=== PATIENT | male | born 1970 | race Caucasian/White ===

== ENCOUNTER 2021-10-01 10:47 | Emergency (ER) | payer OTHER, SELFPAY ==
[2021-10-01] VITALS (10 sets, daily range): BP systolic 149–168; BP diastolic 96–101; PULSE 67–102; RESP 14–28; O2SAT 96–100
--- NOTE | ~2021-10-01 | XR_ITS ---
EXAMINATION: XR chest 2V 10/01/2021 11:57 INDICATION: Chest pain. Electrical shock. PROCEDURE: 2 view chest COMPARISON: No prior studies for comparison. FINDINGS: The lungs are clear. The cardiomediastinal silhouette is within normal limits. There are no pleural effusions. There is no pneumothorax suspected. IMPRESSION: 1: NO ACUTE CARDIOPULMONARY DISEASE. Reviewed, dictated and finalized at location A. ICATION CHEMIST
--- NOTE | 2021-10-01 10:59 | ECG_ITS ---
Measurements Intervals [place] Rate: 87 P: 46 FL: 139 QRS: -19 QRSD: 125 T: -12 QT: 351 QTc: 424 Interpretive Statements SINUS RHYTHM WITH SINUS ARRHYTHMIA RIGHT BUNDLE BRANCH BLOCK BASELINE ARTIFACT- II, III, AVR, AVF, V1-V6 ABNORMAL ECG Electronically Signed On 10-01-2021 11:10:44 STEAM SERVICE INSPECTOR by Teto Horne D.O.
--- NOTE | 2021-10-01 11:26 | ED.CHESTPAIN ---
HPI - Chest Pain General Chief Complaint: Chest Pain Stated Complaint: electrocution Time Seen by Provider: 10/01/21 11:24 Source: patient and family Limitations: no limitations History of Present Illness HPI narrative: Patient was remodeling his home, accidentally touch uncovered wire for 1 to 2 seconds by right hand, 10 AM, came with a chief complaint of pain of the right hand and right upper extremity like dull aching, patient had lightheadedness and dizziness lasted for few seconds , then resolved .currently complaining of pain of the right hand ,feels like swollen and tight. Patient denies any loss of consciousness, chest pain, shortness of breath, headache, fall or burn. the voltage is 120 Related Data Allergies Allergy/AdvReac Type Severity Reaction Status Date / Time Penicillins Allergy Anaphylaxis Verified 10/01/21 11:06 Review of Systems Review of Systems: CONSTITUTIONAL: Denies fever, chills, or sweats. EYES: Denies visual changes, redness, or discharge. ENT: Denies rhinorrhea, congestion, sore throat, or otalgia. CARDIOVASCULAR: Denies chest pain, palpitations, or edema. RESPIRATORY: Denies cough or dyspnea. GASTROINTESTINAL: Denies abdominal pain, nausea, vomiting, or diarrhea. GENITOURINARY: Denies dysuria or hematuria. SKIN: Denies rash or itching. MUSCULOSKELETAL: Denies back pain, joint pain, or myalgia. NEUROLOGIC: Denies headache, numbness, or weakness. PSYCHIATRIC: Denies anxiety or depression. Exam Narrative: General appearance: Well-developed, well-nourished Skin: Normal color Head: Normocephalic, nontraumatic Eyes: Clear conjunctiva ENT: Oropharynx normal, ears normal, nose normal Neck: Supple, nontender Chest and respiratory: Airway patent, no respiratory distress, no accessory muscle use Heart: Regular rate/rhythm Abdomen: Soft, nontender, no organomegaly, quiet bowel sounds Vascular: Normal peripheral pulses, normal capillary refill. Musculoskeletal: Slight diffuse tenderness of the right hand, forearm and arm, no bobo, no bruises, no erythema, no tightness, the whole upper extremity is soft including the right hand patient is able to flex, extend the shoulder, elbow, wrist. Slight difficulty to make a fist Neurologic: Alert and oriented ?3, PAPER SEALER is normal as tested, no gross motor deficit Course Consultations Consultation #1: Dr. Marion. Agreed with discharge patient home, encourage fluid intake. Date: 10/01/21 Time: 13:26 Vital Signs Vital signs: Vital Signs Pulse Rate 93 10/01/21 11:01 Respiratory Rate 16 10/01/21 11:01 Blood Pressure 168/101 H 10/01/21 11:01 Pulse Oximetry 98 10/01/21 11:01 Pulse Rate 93 10/01/21 11:01 Respiratory Rate 16 10/01/21 11:01 Blood Pressure 168/101 H 10/01/21 11:01 Pulse Oximetry 98 10/01/21 11:01 MDM - Chest Pain MDM Narrative Medical decision making narrative: Electric injury, muscle damage is my concern, myoglobinemia, myoglobinuria, elevated CPK is my concern. Labs ordered, IV fluid. Physical examination showed no compartment syndrome at this time. Differential Diagnosis Differential diagnosis: Likely other (Muscle damage) Imaging Data Radiologist's impression: Impressions Chest X-Ray 10/01/21 11:58 IMPRESSION: 1: NO ACUTE CARDIOPULMONARY DISEASE. ECG Data EKG #1: Attestation: I personally reviewed and interpreted this ECG as follows: ECG completion date: 10/01/21 ECG completion time: 13:26 Interpretation: Normal sinus rhythm at 87 bpm, right bundle branch block. Abnormal EKG Critical Care Time Critical Care Time Critical Care Time: Yes Total Critical Care Time: 50 Discharge Plan Disc
[2021-10-01 11:35] LABS: Basophils Absolute Auto 0.1 K/mm3 (0.0-0.1); Basophils Percent Auto 0.8 % (0.2-1.2); Eosinophils Absolute Auto 0.2 K/mm3 (0-0.3); Eosinophils Percent Auto 2.2 % (0-4.4); Hematocrit 45.6 % (42.0-52.0); Hemoglobin 15.9 g/dL (14.0-18.0); Immature Granulocyte Absolute 0.03 K/mm3 (0.00-0.031); Immature Granulocyte Percent A 0.4 % (0-0.5); Lymphocytes Absolute Auto 1.86 K/mm3 (0.9-3.2); Lymphocytes Percent Auto 25.7 % (18.3-44.2); Mean Corpuscular HGB Conc 34.9 g/dl (32-36); Mean Corpuscular Hemoglobin 31.4 pg (26-34); Mean Corpuscular Volume 90.1 fl (80-100); Mean Platelet Volume 10.1 fl (7.4-10.4); Monocytes Absolute Auto 0.5 K/mm3 (0.1-0.6); Monocytes Percent Auto 6.6 % (2.6-8.5); Neutrophils Absolute Auto 4.7 K/mm3 (1.3-6.7); Neutrophils Percent Auto 64.3 % (45.5-73.1); Platelet Count Result 227 k/mm3 (150-375); Red Blood Count 5.06 M/mm3 (4.6-6.20); Red Cell Distribution Width 13.2 % (11.5-14.5); White Blood Count 7.2 K/mm3 (4.5-10.0)
[2021-10-01 11:57] LABS: INR 0.9; Prothrombin Time 12.2 Seconds (11.1-14.7)
[2021-10-01 11:58] LABS: Partial Thromboplastin Time 27.6 SECONDS (22.3-36.8)
[2021-10-01] MEDS: SODIUM CHLORIDE 0.9% IV 1,000 ML 999 ML IV CONT (12:17)
[2021-10-01 12:36] LABS: Alanine Aminotransferase 42 U/L (4-50); Albumin Level 4.6 g/dL (3.5-5.1); Alkaline Phosphatase 84 U/L (38-126); Anion Gap 7 mmol/L (8-16); Aspartate Amino Transferase 40 U/L (17-59); Bilirubin,Total 0.4 mg/dL (0.2-1.3); Blood Urea Nitrogen 13 mg/dL (9-20); Calcium 9.3 mg/dL (8.4-10.2); Carbon Dioxide 27 mmol/L (22-30); Chloride 102 mmol/L (98-107); Creatine Kinase 232 U/L (55-170); Estimated CRCL calculation 64 ml/min; Estimated Glomerular Filt Rate > 60; Glucose 96 mg/dL (65-110); Lipase 42 U/L (23-300); Potassium 4.1 mmol/L (3.4-5.0); Sodium 136 mmol/L (137-145)
[2021-10-01 12:47] LABS: Troponin I < 0.012 ng/mL (0.000-0.034)
[2021-10-04 13:54] LABS: Myoglobin, Urine <27 mcg/L (<28)
== END 2021-10-01 14:19 | disposition home or self-care (01) ==
PROVIDERS: Emergency Provider Emergency Medicine
DX: R20.2 Paresthesia of skin (principal); W86.0XXA Exposure to domestic wiring and appliances, initial encounter; I45.10 Unspecified right bundle-branch block
CPT/HCPCS: 36415; 71046; 80053; 82550; 83690; 83874; 84484; 85025; 85610; 85730; 93005; 96360; 96361; 99284; J7030

== ENCOUNTER 2022-05-06 11:35 | Inpatient (IN) | payer OTHER, SELFPAY ==
[2022-05-06] VITALS (25 sets, daily range): BP systolic 104–171; BP diastolic 70–109; PULSE 59–125; RESP 13–24; TEMP 36.3–36.7; O2SAT 94–100; BMI 30.1
--- NOTE | ~2022-05-06 | CT_ITS ---
EXAMINATION: CT cervical spine wo con DATE: 05/06/2022 12:53 INDICATION: Left upper extremity weakness and numbness. Status post STEMI. TECHNIQUE: Computed tomography (CT) of the cervical spine was performed without intravenous contrast. The dose-length product was 459 mGy-cm. Automated exposure control and iterative reconstruction tech nique were employed. COMPARISON: None FINDINGS: There is degenerative disc disease with endplate degenerative change at C5-6. There is an o ld spinous process fracture with nonunion at T1. Odontoid process within normal limits. There is mild levoscoliosis centered at the cervicothoracic junction. Odontoid process within normal limits. There is multilevel uncinate degenerative change. No acute fracture, subluxation or spondylolisthesis. The re is mild multilevel uncinate and facet degenerative change. IMPRESSION: 1. No acute abnormality of the cervical spine. 2: Mild cervical spondylosis. Reviewed, dictated and finalized at location A.
--- NOTE | ~2022-05-06 | CT_ITS ---
EXAMINATION: CT brain wo con DATE: 05/06/2022 12:52 INDICATION: Left arm weakness and numbness TECHNIQUE: Computed tomography (CT) of the head was performed without intravenous contrast. The dose- length product was 605.33 mGy-cm. Automated exposure control and iterative reconstruction technique w ere employed. COMPARISON: None FINDINGS: The vascular structures are hyperdense, possibly related to recent contrast administration or dehydration. Normal brain parenchymal volume for age. No acute intracranial hemorrhage, infarction , mass or mass effect. Basilar cisterns are patent. No ventriculomegaly or midline shift. There is mu cosal thickening of the right maxillary and ethmoid sinuses. Mastoids are pneumatized. IMPRESSION: 1. No acute intracranial abnormality. Reviewed, dictated and finalized at location A.
[2022-05-06 11:19] LABS: Hematocrit 45.7 % (42.0-52.0); Hemoglobin 16.5 g/dL (14.0-18.0); Mean Corpuscular HGB Conc 36.1 g/dl (32-36); Mean Corpuscular Hemoglobin 31.1 pg (26-34); Mean Corpuscular Volume 86.1 fl (80-100); Mean Platelet Volume 10.9 fl (7.4-10.4); Platelet Count Result 376 k/mm3 (150-375); Red Blood Count 5.31 M/mm3 (4.6-6.20); Red Cell Distribution Width 13.5 % (11.5-14.5); White Blood Count 12.7 K/mm3 (4.5-10.0)
[2022-05-06 11:32] LABS: Alanine Aminotransferase 24 U/L (6-50); Albumin Level 4.5 g/dL (3.5-5.1); Alkaline Phosphatase 108 U/L (38-126); Anion Gap 12 mmol/L (8-16); Aspartate Amino Transferase 30 U/L (17-59); Bilirubin,Total 0.6 mg/dL (0.2-1.3); Blood Urea Nitrogen 14 mg/dL (9-20); Carbon Dioxide 21 mmol/L (22-30); Chloride 106 mmol/L (98-107); Estimated Glomerular Filt Rate > 60; Glucose 140 mg/dL (65-110); Potassium 3.5 mmol/L (3.4-5.0); Sodium 139 mmol/L (137-145)
--- NOTE | 2022-05-06 11:34 | ECG_ITS ---
Measurements Intervals [place] Rate: 92 P: 50 [place]: 169 QRS: -7 QRSD: 121 T: -19 QT: 349 QTc: 434 Interpretive Statements SINUS RHYTHM RIGHT BUNDLE BRANCH BLOCK INFERIOR ST ELEVATION MYOCARDIAL INFARCT- ACUTE ABNORMAL ECG Electronically Signed On 05-06-2022 13:04:23 CDT by Teto Horne D.O.
--- NOTE | 2022-05-06 11:37 | WPDCARDPROC ---
Cardiac Cath Procedure Note Date of procedure:: 05/06/22 Performing physician:: Gianni Johnson MD Indication:: inferior wall ST-elevation [place] Brief clinical history:: this is a 52-year-old man presenting in by ambulance with severe acute chest pain that occurred earlier this morning while he was doing work in the yd. ECG in the field demonstrates obvious acute inferior current of injury. He is being brought to the quality lab assoc for emergency angiography in this setting. No previous history of coronary artery disease. The patient is a cigarette smoker Procedure Procedure performed:: emergency coronary angiography emergency PCI(HAMMAD) to the right coronary artery left ventriculogram Sedation/Medication given:: no sedation Access site:: right femoral artery Estimated blood loss:: 30 cc Procedure note:: patient was brought emergently to the cardiac catheterization lab straight from the ambulance on the ambulance gurney. He was placed on the quality lab [facility] table where the right left femoral triangles were prepped and draped in the usual sterile fashion. Anesthesia was provided with 1% lidocaine infiltrated locally. Using the modified Seldinger technique Ari 6 [place] sheath was placed into the right femoral artery. After this I used a 5 [place] FL4 catheter to engage and inject the left coronary artery in multiple projections. After this a 6 [place] JR4 guiding catheter with side holes was placed into the right coronary artery and angiography was carried out. After this emergency PCI of the right coronary artery was recommended and carried out as detailed below. The patient received aspirin in the ambulance and 180 mg of Brilinta as he entered the quality lab assoc. Procedural anticoagulation was provided with a bolus and infusion of Angiomax. Following right coronary intervention the guiding catheter was removed and a 5 [place] angled pigtail catheter was used to measure left-sided hemodynamics and to inject LV g in the TORRE projection. After this the case was terminated the patient was taken to the ICU for post [place] PCI recovery. During the case at the time of revascularization the patient developed more rapid irregular rhythm consistent with atrial fibrillation. He was in sinus rhythm with second-degree AV block Mobitz type 1 prior to the intervention. He was given a bolus and infusion of amiodarone for this. Following the procedure the sheath was sutured into position he was taken to the ICU for post [place] PCI recovery. Findings:: Hemodynamics: The central aortic pressure was 158/98 left ventricle 158/10 end-diastolic pressure 24 there is no gradient on pullback across the aortic valve. Left ventricle: The LV is normal in size. The inferior wall is akinetic the remainder of the LV contracts normally. The global ejection fraction is 50-55%. The left main coronary artery is short and widely patent the left anterior descending is a medium caliber vessel extending down to the apex. The LAD and its branches are angiographically free of disease. The circumflex is a medium caliber vessel giving rise to the marginal branches. The circumflex system is angiographically also free of disease. The right coronary artery is 100% occluded in the 1st portion in the appearance of which is typical but abrupt acute thrombotic occlusion. There is no antegrade filling in the RCA intervention: The right coronary artery was wired using a 0.014 BMW coronary guidewire which advanced easily into the distal RPL system. The target lesion was then pre-dilated using a 3 x 20 mm Mac angioplasty balloon. This restored KASSIE 3 flow in the vessel and showed the area of disease to be moderately long. The entire area was then stented using a 3.5 x 30 mm Leads Directiro sirolimus eluting stent with an excellent anatomical result following to stent deployment at 12 atmospheres there was no residual stenosis disruption dissection or distal embolization and there was KASSIE
[2022-05-06 11:43] LABS: Troponin I < 0.012 ng/mL (0.000-0.034)
[2022-05-06] MEDS: AMIODARONE 360 MG/D5W 200 ML 360 MG/200 ML BAG 33.33 MG IV CONT (11:45)
--- NOTE | 2022-05-06 11:45 | PC.NURSE ---
This patient, Naresh Hernandez, was admitted to Intensive Care Unit-6. Patient/family oriented to hospital policies and general routines including ID bracelet, bed and alarms, visiting hours, pain management, procedures, bathroom and other care routines, personal items, smoking policy, room service/diet, and visiting hours. Information on how to activate the Rapid Response Team has been discussed. Patient/Family are encouraged to report perceived risks to care and to ask questions if they do not understand what they are told or what they should do.
[2022-05-06] MEDS: MORPHINE SULFATE (*CRX) 2 MG/ML INJ IV PUSH ×4 (12:26→23:40)
[2022-05-06] MEDS: SODIUM CHLORIDE 0.9% IV 1,000 ML 125 ML IV CONT (12:26)
--- NOTE | 2022-05-06 12:31 | WPDCNINT ---
Assessment and Plan Assessment and plan (1) STEMI (ST elevation myocardial infarction): Code(s): I21.3 - ST elevation (STEMI) myocardial infarction of unspecified site Status: Acute Assessment and Plan: Patient complained of chest pain and on day of admission while doing his yard work, chest pain was accompanied by nausea, shortness of breath and left upper extremity pain and numbness. -EKG on the field showed acute inferior ST-elevation myocardial injury, status post PTCA/PCI with HAMMAD x1 to 100% occluded 1st portion of the RCA, EF 50-55% -cardiology following the patient -continue Brilinta, aspirin, rosuvastatin, losartan and metoprolol (2) History of essential hypertension: Code(s): Z86.79 - Personal history of other diseases of the circulatory system Status: Acute Assessment and Plan: Patient states that he had lost his insurance and has not been following with his primary care doctor so currently is not on any antihypertensives -continue lisinopril and metoprolol (3) History of irregular heartbeat: Code(s): Z86.79 - Personal history of other diseases of the circulatory system Status: Acute Assessment and Plan: Patient states he has a history of irregular heart rhythm, -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 started amiodarone infusion -cannulated to sinus rhythm after he arrived in the ICU -patient is on metoprolol (4) History of hyperlipidemia: Code(s): Z86.39 - Personal history of other endocrine, nutritional and metabolic disease Status: Acute Assessment and Plan: Continue rosuvastatin (5) Pain and numbness of left upper extremity: Code(s): M79.602 - Pain in left arm; R20.0 - Anesthesia of skin Status: Acute Assessment and Plan: Could be related to residual referred pain from the STEMI -05/06 CT scan of the brain and cervical spine were negative -morphine for pain, will give NTG SL x1 with improvement in the pain (6) Tobacco use: Code(s): Z72.0 - Tobacco use Status: Acute Assessment and Plan: Patient counseled on tobacco cessation, approximately 3 minutes were spent on counseling, discussed the negative effects of tobacco use. -patient stated he is going to quit smoking after the NE that he had today Plan CT scan of the brain and cervical spine Additional Plan Discussed with cardiology, will let amiodarone drip finish and will discontinue. Discussed with patient and his family at bedside updated them with the CT scan results and my discussion with Cardiology. Code status: Full code Critical care time spent: 44 minutes This dictation may have been done utilizing a voice recognition system. Attempts have been made to correct errors. However, there may be uncorrected grammatical, spelling, and recognition errors present. Due to a high probability of clinically significant, life threatening deterioration, the patient required my highest level of preparedness to intervene emergently and I personally spent this critical care time directly and personally managing the patient. This critical care time included obtaining a history; examining the patient; pulse oximetry; ordering and review of studies; arranging urgent treatment with development of a management plan; evaluation of patient's response to treatment; frequent reassessment; and discussions with other providers. It was exclusive of separately billable procedures and treating other patients and teaching time. Please see Assessment and Plan section and the rest of the note for further information on patient assessment and treatment Appliance Tester Consult Note Consult date: 05/06/22 Reason for consult: Acute Inferior ST-elevation [place] status post PTCA/PCI with HAMMAD x1 to 100% occluded 1st portion of the RCA, EF 50-55% HPI: Naresh Hernandez is a 52 year old male with history of tobacco use, history of irregular heart rate, hyperlipidemia and essential hypertension, patient st
[2022-05-06 12:35] LABS: Cholesterol 244 mg/dL (0-200); HDL Direct 30 mg/dL; Triglycerides 139 mg/dL (<150)
[2022-05-06] MEDS: NITROGLYCERIN SL 0.4 MG TABLET SUBLINGUAL ×4 (12:36→19:48)
[2022-05-06 12:46] LABS: LDL Cholesterol Direct 162 mg/dL
--- NOTE | 2022-05-06 13:19 | PM.IMHP ---
H&P: HPI History of Present Illness Date/Time: 05/06/22 13:19 Chief Complaint: chest pain Narrative: this is a 52-year-old gentleman who is being seen very rapidly as he is being rolled down the delong to the cardiac catheterization lab in the setting of acute inferior ST-elevation [place]. The patient has no previous history of cardiac problems. He states he does not seek medical attention with the physician for any reason why regularly. He takes no medications prior to this admission. He was in his outside of his home doing yd work this morning and began to experience retrosternal pressure-like chest pain. 911 was called to his home and ECG in the field demonstrated obvious acute inferior current of injury. He was brought to the cardiac catheterization lab where STEMI was activated in the field. The patient was met in the emergency room at off the ambulance and is being rolled to the elevator in to the cardiac catheterization lab as we speak. He denies any other current symptoms. Review of Systems Review of Systems: ROS unobtainable: Yes unobtainable due to medical condition PMFSH Social History Social History (System 11/21/21 @ 12:32 by Emperatriz Harper) Smoking packs per day: 0.5 Smoking cigarettes per day: 10.0 Years smoked: 44 Smoking pack-years: 22.00 Smoking status: Current every day smoker Tobacco type: cigarettes Alcohol intake: former Substance use: never Spiritual care concerns: No Meds Home Medications and Allergies Home Medications Medication Instructions Recorded Confirmed Type No Home Medications 05/06/22 05/06/22 History Allergies Allergy/AdvReac Type Severity Reaction Status Date / Time Penicillins Allergy Anaphylaxis Verified 11/21/21 12:32 Exam Const: General: uncomfortable Other: Well-developed well-nourished white male appears to be in moderate distress with chest pain HENMT: Mouth: Yes moist mucous membranes Eyes: Sclera: sclerae normal Neck: Neck: supple and no JVD Other: carotid pulses are intact bilaterally and there are no audible bruits Resp: Effort & Inspection: normal respiratory effort Auscultation: clear to auscultation bilaterally Cardio: Rate: bradycardic Rhythm: regular rhythm Other: patient sinus bradycardia. No murmur no gallop GI: GI Palp: Yes Soft to palpation Auscultation: normal bowel sounds Skin: General skin exam: normal color Neuro: Other: neurologically intact normal cognition Extrem: General: normal to inspection H&P: Results Labs Labs: Short CBC 05/06/22 Range/Units 10:36 WBC 12.7 H (4.5-10.0) K/mm3 Hgb 16.5 (14.0-18.0) g/dL Hct 45.7 (42.0-52.0) % Plt Count 376 H D (150-375) k/mm3 BMP 05/06/22 10:36 Sodium 139 Potassium 3.5 Chloride 106 Carbon Dioxide 21 L BUN 14 Creatinine 1.00 Glucose 140 H Calcium 9.0 Cardiac Enzymes 05/06/22 Range/Units 10:36 Troponin I < 0.012 (0.000-0.034) ng/mL Liver Function 05/06/22 Range/Units 10:36 Total Bilirubin 0.6 (0.2-1.3) mg/dL AST 30 (17-59) U/L ALT 24 (6-50) U/L Alkaline Phosphatase 108 (38-126) U/L Albumin 4.5 (3.5-5.1) g/dL Assessment and Plan Assessment and plan (1) STEMI (ST elevation myocardial infarction): Code(s): I21.3 - ST elevation (STEMI) myocardial infarction of unspecified site Status: Acute Plan this is a 52-year-old man with no previous overt cardiac history presenting with acute chest pain and acute ST-elevation inferior infarction. He is being brought for emergency angiography at this time in hopes of providing direct mechanical revascularization. Gianni Johnson MD [facility]
[2022-05-06] MEDS: METOPROLOL TARTRATE 25 MG TABLET PO ×2 (13:29→17:52)
[2022-05-06 14:39] LABS: INR 1.3; Prothrombin Time 15.2 Seconds (11.1-14.7)
--- NOTE | 2022-05-06 19:33 | ECG_ITS ---
Measurements Intervals [place] Rate: 59 P: 27 RI: 143 QRS: -17 QRSD: 114 T: -18 QT: 414 QTc: 412 Interpretive Statements SINUS BRADYCARDIA RIGHT BUNDLE BRANCH BLOCK INFERIOR INFARCT, PROBABLY RECENT ABNORMAL ECG Electronically Signed On 05-07-2022 7:09:49 CDT by Teto Horne D.O.
--- NOTE | 2022-05-06 19:35 | PC.NURSE ---
Entered patient's room to reapply cardiac cath rn. Patient stated he was having 8/10 chest tightness. Patient stated it was the same pain as when he came in. EKG obtained and nitro SL given x3 per protocol. Dr. Jernigan notified and new orders received. EKGs sent to Dr. Jernigan per her request.
--- NOTE | 2022-05-06 20:40 | ECG_ITS ---
Measurements Intervals [place] Rate: 62 P: 37 HI: 133 QRS: -17 QRSD: 118 T: -5 QT: 419 QTc: 426 Interpretive Statements SINUS RHYTHM ATRIAL PREMATURE COMPLEX INCOMPLETE RIGHT BUNDLE BRANCH BLOCK INFERIOR INFARCT, PROBABLY RECENT ABNORMAL ECG Electronically Signed On 05-07-2022 7:15:20 CDT by Teto Horne D.O.
[2022-05-06] MEDS: TICAGRELOR 90 MG TABLET PO (22:30)
[2022-05-07] VITALS (14 sets, daily range): BP systolic 101–119; BP diastolic 70–83; PULSE 51–83; RESP 13–23; TEMP 36.4–37.2; O2SAT 94–98
--- NOTE | 2022-05-07 | ECHO_ITS ---
Patient Info Name: Naresh Hernandez Age: 52 years : 1970 Gender: Male Ht: 63 in Wt: 163 lbs BSA: 1.84 m2 HR: 60 bpm BP: 110 / 77 mmHg Heart Rhythm: Sinus Rhythm Exam Date: 05/07/2022 2:02 PM Exam Location: [facility] Patient Status: Inpatient Admit Date: 05/06/2022 Staff Ordering Physician: Nimisha Almonte Food Aide: Sal Santiago RDCS, RT Attending Provider: Gianni Johnson MD Referring Physician: Suzy MOULTON; Exam Type: CA echo doppler color flow Study Info Indications I21.4 - Non-ST elevation (NSTEMI) myocardial infarction Complete two-dimensional, color flow and Doppler transthoracic echocardiogram is performed with contrast to opacify the left ventricle and to improve the deliniation of the left ventricle endocardial borders. Strain analysis performed. Summary 1. Left ventricular chamber dimension is normal. 2. Left ventricular systolic function is normal, estimated at 60-65%. 3. There is mildly increased left ventricular wall thickness. 4. The left ventricular diastolic function is normal. 5. Global longitudinal strain is borderline at -17 %. 6. Left atrial chamber dimension is mildly enlarged. 7. There is mild to moderate mitral valve regurgitation. Left Ventricle Left ventricular chamber dimension is normal. Left ventricular systolic function is normal, estimated at 60-65%. There is mildly increased left ventricular wall thickness. The left ventricular diastolic function is normal. Global longitudinal strain is borderline at -17 %. Right Ventricle Right ventricular chamber dimension is normal. Right ventricular systolic function is normal. Left Atria Left atrial chamber dimension is mildly enlarged. Right Atria Right atrial chamber dimension is normal. Atrial Septum Intact interatrial septum visualized by color flow imaging. Aortic Valve The aortic valve is probable trileaflet. There is mild aortic valve sclerosis. There is no aortic valve stenosis. There is trace aortic valve regurgitation. Pulmonic Valve The pulmonic valve is normal. There is no pulmonic valve stenosis. There is trace pulmonic regurgitation. Mitral Valve The mitral valve has normal leaflets. There is no mitral valve stenosis. There is mild to moderate mitral valve regurgitation. Tricuspid Valve The tricuspid valve leaflets are normal. There is no significant tricuspid valve stenosis. There is trace tricuspid valve regurgitation. Pericardium/Pleural The pericardium appears normal. There is no pericardial effusion. Inferior Vena Cava Normal inferior vena cava with <50% collapse upon inspiration consistent with elevated right atrial pressure, 10 mmHg. Aorta The aortic root size at the sinus of Valsalva is normal. Left Ventricular Outflow Tract Name Value Normal LVOT 2D LVOT Diameter 2.0 cm LVOT Doppler LVOT Peak Gradient 3 mmHg LVOT Mean Gradient 1 mmHg LVOT VTI 17 cm LVOT VTI/AV VTI Ratio 0.8 LVOT Stroke Volume
[2022-05-07 04:13] LABS: Basophils Absolute Auto 0.1 K/mm3 (0.0-0.1); Basophils Percent Auto 0.6 % (0.2-1.2); Eosinophils Absolute Auto 0.2 K/mm3 (0-0.3); Eosinophils Percent Auto 1.8 % (0-4.4); Hematocrit 38.7 % (42.0-52.0); Hemoglobin 13.5 g/dL (14.0-18.0); Immature Granulocyte Absolute 0.02 K/mm3 (0.00-0.031); Immature Granulocyte Percent A 0.2 % (0-0.5); Lymphocytes Absolute Auto 2.06 K/mm3 (0.9-3.2); Lymphocytes Percent Auto 22.8 % (18.3-44.2); Mean Corpuscular HGB Conc 34.9 g/dl (32-36); Mean Corpuscular Hemoglobin 31.5 pg (26-34); Mean Corpuscular Volume 90.2 fl (80-100); Mean Platelet Volume 9.9 fl (7.4-10.4); Monocytes Absolute Auto 0.6 K/mm3 (0.1-0.6); Neutrophils Absolute Auto 6.1 K/mm3 (1.3-6.7); Neutrophils Percent Auto 67.6 % (45.5-73.1); Platelet Count Result 230 k/mm3 (150-375); Red Blood Count 4.29 M/mm3 (4.6-6.20); Red Cell Distribution Width 13.8 % (11.5-14.5)
[2022-05-07 04:22] LABS: Anion Gap 5 mmol/L (8-16); Blood Urea Nitrogen 12 mg/dL (9-20); Calcium 8.2 mg/dL (8.4-10.2); Carbon Dioxide 27 mmol/L (22-30); Chloride 107 mmol/L (98-107); Estimated CRCL calculation 72 ml/min; Estimated Glomerular Filt Rate > 60; Glucose 113 mg/dL (65-110); Magnesium 1.9 mg/dL (1.6-2.3); Phosphorus 3.2 mg/dL (2.5-4.5); Sodium 139 mmol/L (137-145)
--- NOTE | 2022-05-07 05:11 | ECG_ITS ---
Measurements Intervals [place] Rate: 60 P: 23 [place]: 152 QRS: -62 QRSD: 122 T: -32 QT: 423 QTc: 424 Interpretive Statements SINUS RHYTHM LEFT AXIS DEVIATION RIGHT BUNDLE BRANCH BLOCK INFERIOR INFARCT, PROBABLY RECENT BASELINE ARTIFACT- I, II ABNORMAL ECG Electronically Signed On 05-07-2022 11:28:10 CDT by Teto Horne D.O.
[2022-05-07] MEDS: TICAGRELOR 90 MG TABLET PO ×2 (08:34→20:09)
[2022-05-07] MEDS: ASPIRIN 81 MG CHEWABLE TABLET PO (08:34)
[2022-05-07] MEDS: ROSUVASTATIN 10 MG TABLET 20 MG PO (08:34)
[2022-05-07] MEDS: METOPROLOL TARTRATE 25 MG TABLET PO ×2 (08:34→20:09)
[2022-05-07] MEDS: LOSARTAN POTASSIUM 25 MG TABLET PO (08:35)
--- NOTE | 2022-05-07 08:48 | WPDINTPN ---
Progress Note: A&P Assessment and Plan (1) STEMI (ST elevation myocardial infarction): Code(s): I21.3 - ST elevation (STEMI) myocardial infarction of unspecified site Status: Acute Assessment and Plan: Patient complained of chest pain and on day of admission while doing his yard work, chest pain was accompanied by nausea, shortness of breath and left upper extremity pain and numbness. -EKG on the field showed acute inferior ST-elevation myocardial injury, status post PTCA/PCI with HAMMAD x1 to 100% occluded 1st portion of the RCA, EF 50-55% -cardiology following the patient -continue Brilinta, aspirin, rosuvastatin, losartan and metoprolol -patient had a episodes of nonsustained V-tach, PVCs likely due to [id number] (2) History of essential hypertension: Code(s): Z86.79 - Personal history of other diseases of the circulatory system Status: Acute Assessment and Plan: Patient states that he had lost his insurance and has not been following with his primary care doctor so currently is not on any antihypertensives -continue lisinopril and metoprolol (3) History of irregular heartbeat: Code(s): Z86.79 - Personal history of other diseases of the circulatory system Status: Acute Assessment and Plan: Patient states he has a history of irregular heart rhythm, -in the labeling specialist he did go into AFib RVR started amiodarone infusion, patient converted to sinus rhythm after he came to the ICU from the labeling specialist -continue metoprolol -currently in sinus rhythm, rate controlled (4) History of hyperlipidemia: Code(s): Z86.39 - Personal history of other endocrine, nutritional and metabolic disease Status: Acute Assessment and Plan: Continue rosuvastatin (5) Pain and numbness of left upper extremity: Code(s): M79.602 - Pain in left arm; R20.0 - Anesthesia of skin Status: Acute Assessment and Plan: Left upper extremity pain and numbness, Could be related to residual referred pain from the STEMI -05/06 CT scan of the brain and cervical spine were negative -morphine for pain, will give NTG SL x1 with improvement in the pain -left upper extremity pain and numbness has resolved (6) Tobacco use: Code(s): Z72.0 - Tobacco use Status: Acute Assessment and Plan: Patient counseled on tobacco cessation, approximately 3 minutes were spent on counseling, discussed the negative effects of tobacco use. -patient stated he is going to quit smoking after the MA Additional Plan Discussed with cardiology Discussed with patient updated him with his condition and plan of care Code status: Full code Critical care time spent: 32 minutes This dictation may have been done utilizing a voice recognition system. Attempts have been made to correct errors. However, there may be uncorrected grammatical, spelling, and recognition errors present. Due to a high probability of clinically significant, life threatening deterioration, the patient required my highest level of preparedness to intervene emergently and I personally spent this critical care time directly and personally managing the patient. This critical care time included obtaining a history; examining the patient; pulse oximetry; ordering and review of studies; arranging urgent treatment with development of a management plan; evaluation of patient's response to treatment; frequent reassessment; and discussions with other providers. It was exclusive of separately billable procedures and treating other patients and teaching time. Please see Assessment and Plan section and the rest of the note for further information on patient assessment and treatment Subjective Date/time seen: 05/07/22 08:48 Interval history: Reason for consult: Acute Inferior ST-elevation MA status post PTCA/PCI with HAMMAD x1 to 100% occluded 1st portion of the RCA, EF 50-55% 05/07/2022: Patient seen and examined the ICU, complains of some chest tig
[2022-05-07] MEDS: NICOTINE (*PBKC) 14 MG PATCH 1 PATCH TRANSDERM (10:43)
--- NOTE | 2022-05-07 13:16 | PM.PNCARD ---
Progress Note: A&P Assessment and Plan (1) STEMI (ST elevation myocardial infarction): Code(s): I21.3 - ST elevation (STEMI) myocardial infarction of unspecified site Status: Acute Assessment and Plan: Acute Inferior ST-elevation [place] status post PTCA/PCI with HAMMAD x1 to 100% occluded 1st portion of the RCA. VSS overnight, had a few runs of NSVT, PVC's. Also had some recurrent chest discomfort that resolved with morphine, no EKG changes. Continue DAPT with ASA and brilinta without interruption for one year Continue metoprolol, losartan Check echo Aggressive risk factor modification for CAD Outpatient cardiac rehab OK to transfer to IMU Continue telemetry Anticipate discharge within the next 24 - 48 hours if he remains stable Plan Subjective Date/time seen: 05/07/22 13:16 Interval history: Reason for consult: Acute Inferior ST-elevation OR status post PTCA/PCI with HAMMAD x1 to 100% occluded 1st portion of the RCA, EF 50-55% Had a couple episodes of recurrent chest pain last evening that resolved with administration or morphine. No recurrence of chest pain since early this morning. Has had a few runs of NSVT, longest of which was 9 beats. Asymptomatic. Currently in sinus bradycardia on telemetry. No shortness of breath, palpitations. Plan to downgrade to IMU level of care. Review of Systems Review of Systems: All systems reviewed & are unremarkable except as noted in HPI and below Exam Const: General: uncomfortable Other: Well-developed well-nourished white male in no distress HENMT: Mouth: Yes moist mucous membranes Eyes: Sclera: sclerae normal Neck: Neck: supple and no JVD Other: carotid pulses are intact bilaterally and there are no audible bruits Resp: Effort & Inspection: normal respiratory effort Auscultation: clear to auscultation bilaterally Cardio: Rate: bradycardic Rhythm: regular rhythm Other: patient sinus bradycardia. No murmur no gallop GI: Auscultation: normal bowel sounds Skin: General skin exam: normal color Other: Right groin arterial access site free from bleeding, hematoma, tenderness. No bruit. Pedal pulses intact Neuro: Other: neurologically intact normal cognition Extrem: General: normal to inspection Objective Data Vital Signs Vital Signs: Vital Signs - 24 hr 05/06/22 13:29 05/06/22 13:30 05/06/22 14:00 Temperature Pulse Rate 89 91 101 H Respiratory Rate 21 H Blood Pressure 132/86 Pulse Oximetry 97 Oxygen Delivery 05/06/22 14:00 05/06/22 14:30 05/06/22 15:30 Temperature Pulse Rate 84 91 75 Respiratory Rate 23 H 21 H 22 H Blood Pressure 137/109 H 132/86 128/88 Pulse Oximetry 96 97 95 Oxygen Delivery 05/06/22 15:52 05/06/22 16:00 05/06/22 16:00 Temperature 36.3 C L Pulse Rate 70 77 Respiratory Rate 18 Blood Pressure 128/88 Pulse Oximetry 98 96 Oxygen Delivery Room Air 05/06/22 16:15 05/06/22 15:45 05/06/22 16:45 Temperature Pulse Rate 67 74 74 Respiratory Rate 22 H 24 H 22 H Blood Pressure 130/89 122/89 119/87 Pulse Oximetry 96 94 94 Oxygen Delivery 05/06/22 17:52 05/06/22 17:00 05/06/22 18:00 Temperature Pulse Rate 69 65 66 Respiratory Rate 13 Blood Pressure 128/86 Pulse Oximetry 95 Oxygen Delivery 05/06/22 18:00 05/06/22 18:00 05/06/22 19:00 Temperature Pulse Rate 66 66 65 Respiratory Rate 15 15 16 Blood Pressure 118/83 118/83 114/89 Pulse Oximetry 97 97 97 Oxygen Delivery 05/06/22 20:00 05/06/22 20:00 05/06/22 20:00 Temperature 36.7 C Pulse Rate 59 L 60 Respiratory Rate 17 Blood Pressure 105/72 Pulse Oximetry 95 Oxygen Delivery Room Air 05/06/22 19:36 05/06/22 19:41 05/06/22 19:47 Temperature Pulse Rate Respiratory Rate Blood Pressure 131/85 122/79 119/70 Pulse Oximetry Oxygen Delivery 05/06/22 21:00 05/06/22 22:00 05/06/22 22:00 Temperature Pulse Rate 59 L 67 67 Resp
[2022-05-07] MEDS: PERFLUTREN LIPID MICROSPHERES 1.5 ML VIAL DILUTED TO 10 ML TOTAL VOLUME IV PUSH (14:11)
--- NOTE | 2022-05-07 14:11 | IVDEFINITY ---
Prior to administration of IV Definity the patient was educated on the risks and benefits of the imaging enhancing agent including potential adverse side effects. The patient verbalized understanding. Allergies were verified. No exclusion criteria were identified and at least one of the following inclusion criteria were met: 1) physician request, 2) patient technically difficult to image (per the [place] [employer]ocardi[employer] guidelines of two or more segments not discernable within the apical view), or 3) questionable left ventricular function. ?
[2022-05-08] VITALS: BP 100/61; PULSE 64; RESP 19; TEMP 35.8; O2SAT 94
[2022-05-08 02:00] VITALS: PULSE 60
[2022-05-08 04:00] VITALS: BP 109/75; PULSE 69; PULSE 71; RESP 23; TEMP 36.8; O2SAT 96
[2022-05-08 06:00] VITALS: PULSE 64
--- NOTE | 2022-05-08 06:30 | PC.NURSE ---
This patient, Naresh Hernandez, was transferred to [facility] on 05/08/22 at 0630. Personal belongings sent with patient. Report given to ENRRIQUE Montano. Appropriate documentation sent with patient.
[2022-05-08 07:57] VITALS: BP 112/70; PULSE 67; RESP 20; TEMP 36.4; O2SAT 97
--- NOTE | 2022-05-08 09:23 | PM.DS ---
DS: Admitting Diagnosis Discharge Date 05/08/[address]-elevation VA DS: Discharge Diagnosis Discharge Diagnosis (1) STEMI (ST elevation myocardial infarction): Code(s): I21.3 - ST elevation (STEMI) myocardial infarction of unspecified site Status: Acute DS: Summary Hospital Course Reason for hospitalization: Acute myocardial infarction Hospital Course: This is a 52-year-old patient who has no prior knowledge of coronary artery disease. He is began to experience chest pain at home on the morning of admission and 911 was called to his home. ECG in the field demonstrated obvious acute inferior wall wall infarction with acute current of injury. He was brought by ambulance to the emergency room. STEMI was activated in the field and the medical laboratory technician team was awaiting the patient's arrival. He was taken immediately to the medical laboratory technician by passing the ED for emergency angiography in this setting. Angiographically was found to have mild plaquing in the left coronary with no significant lesions. His right coronary artery is a large dominant vessel that is proximally occluded. He underwent successful PCI of this lesion using a 3.5 mm Portfoliumiro drug-eluting stent with an excellent angiographic result restoring KASSIE 3 flow in the vessel. The patient was hospitalized in the ICU and then IMU for the next 48 hours and has had no post VA or procedural complications. There have been no arrhythmias or signs of congestive failure. In the cardiac catheterization lab his inferior wall was akinetic echocardiogram was done the following day which appeared to show preserved LV systolic function. Electrocardiogram did demonstrate the development of inferior Q-waves. He was placed on guideline directed medical therapy and has been doing well. Today he is reporting symptoms of some dyspnea with activity but no other symptoms any appears to be a good candidate for discharge. His discharge medications are as listed below it consist of aspirin Brilinta, losartan metoprolol and rosuvastatin. He is instructed to restrict himself to sedentary activity and to start phase 2 cardiac rehab. He will be seen in my office for follow-up in 2-3 weeks following discharge. He was admonished to discontinue cigarette smoking. Status at Discharge Functional status at discharge: independent ambulation Overall status at discharge: patient is progressing back to baseline Time Spent with Patient Time attestation: Total time spent providing and/or coordinating discharge services: Time spent: Less than 30 minutes Exam Const: General: comfortable and no acute distress HENMT: Mouth: Yes moist mucous membranes Eyes: Sclera: sclerae normal Pupils: Equal, round and reactive pupils present Neck: Neck: supple and no JVD Other: Normal carotid pulses and no bruits are audible Resp: Effort & Inspection: normal respiratory effort Auscultation: clear to auscultation bilaterally Cardio: Rate: regular rate Rhythm: regular rhythm Other: No murmur no gallop no rub GI: GI Palp: Yes Soft to palpation Auscultation: normal bowel sounds Skin: General skin exam: normal color Neuro: Other: Alert and oriented normal cognition Extrem: Other: No edema, good distal pulse perfusion Discharge Plan Discharge Attending physician on discharge: Gianni Johnson Consulting providers: Daljit Stout Discharging Clinician: Gianni Johnson Anticipated Discharge Date/Time: 05/08/22 09:29 Patient Disposition: Home, Self-Care Activity: other - see discharge instructions Diet: heart healthy Discharge Instructions: [facility] [address]
[2022-05-08] MEDS: ROSUVASTATIN 10 MG TABLET 20 MG PO (10:36)
[2022-05-08] MEDS: TICAGRELOR 90 MG TABLET PO (10:36)
[2022-05-08 10:37] VITALS: PULSE 84
[2022-05-08] MEDS: ASPIRIN 81 MG CHEWABLE TABLET PO (10:37)
[2022-05-08] MEDS: METOPROLOL TARTRATE 25 MG TABLET PO (10:37)
[2022-05-08] MEDS: LOSARTAN POTASSIUM 25 MG TABLET PO (10:37)
== END 2022-05-08 11:16 | disposition home or self-care (01) | DRG 174 ==
LOC: ANHICU 11:44 → ANHIMU 05-08 06:10
PROVIDERS: Internal Medicine; Admitting Provider Specialist; Visit Provider Specialist
PROC: 4A023N7 Measurement of Cardiac Sampling and Pressure, Left Heart, Percutaneous Approach (ICD-10-PCS; CPT 93452; principal; 2022-05-06 11:00)
PROC: 027034Z Dilation of Coronary Artery, One Artery with Drug-eluting Intraluminal Device, Percutaneous Approach (ICD-10-PCS; 2022-05-06 11:00)
DX: I21.11 ST elevation (STEMI) myocardial infarction involving right coronary artery (principal); F17.210 Nicotine dependence, cigarettes, uncomplicated; I25.10 Atherosclerotic heart disease of native coronary artery without angina pectoris; I48.91 Unspecified atrial fibrillation; I10 Essential (primary) hypertension; E78.5 Hyperlipidemia, unspecified; M48.061 Spinal stenosis, lumbar region without neurogenic claudication
CPT/HCPCS: 36415; 70450; 72125; 80048; 80053; 80061; 83735; 84100; 84484; 85025; 85027; 85610; 93005; 93306; 93458; A9270; C1725; C1769; C1874; C1887; C1894; C9606; J0282; J0461; J0583; J1644; J2270; J7030; J7040; Q9957

== ENCOUNTER 2022-06-04 19:41 | Observation (INO) | payer OTHER, SELFPAY ==
[2022-06-04] VITALS (31 sets, daily range): BP systolic 91–160; BP diastolic 66–86; PULSE 51–88; RESP 12–22; TEMP 36.5; O2SAT 90–98
--- NOTE | ~2022-06-04 | XR_ITS ---
EXAMINATION: XR chest 2V Exam Date/Time: 06/04/2022 20:01 CDT HISTORY: chest pain Comparison: None available. RESULT: Lines, tubes, and devices: None. Lungs and pleura: Bibasilar atelectasis. Hyperinflation likely due to emphysematous change. Cardiomediastinal silhouette: Stable. Other: No acute osseous or upper abdominal finding. IMPRESSION: No acute cardiopulmonary process. Reviewed, dictated and finalized at location K.
--- NOTE | 2022-06-04 19:45 | ED.CHESTPAIN ---
HPI - Chest Pain General Chief Complaint: Chest Pain Stated Complaint: chest pain Time Seen by Provider: 06/04/22 19:45 History of Present Illness HPI narrative: Patient is a 52-year-old male with history of coronary disease who underwent cardiac stenting [address] Johnson that presents ER with chest pain. Patient reports she was sitting at home reading when he had sudden onset chest pain. It is pressure that is central radiating up to his left neck and down his left arm. Feel similar to previous heart attack. Received morphine by EMS without improvement. Reports he has been compliant with Plavix at home. He has stopped smoking. He continues to take his other medication. He did have follow-up with his yarding supervisor 1 week ago was told that things were progressing as planned. Patient does have shortness of breath with exertion that has been ongoing since he had a heart attack. He was told it may be due to weakened muscle wall. He has not yet started cardiac rehab. Related Data Allergies Allergy/AdvReac Type Severity Reaction Status Date / Time Penicillins Allergy Anaphylaxis Verified 11/21/21 12:32 Review of Systems Review of Systems: All systems reviewed & are unremarkable except as noted in HPI and below Constitutional: Constitutional: Denies chills, Denies fatigue and Denies fever(s) ENT: Denies nasal congestion and Denies sore throat Cardiovascular: Cardiovascular: Reports chest pain, Denies rapid heart rate and Reports radiating jaw, neck or arm pain Respiratory: Respiratory: Denies cough, Reports dyspnea and Denies wheezing Gastrointestinal: Gastrointestinal: Denies abdominal pain, Denies nausea and Denies vomiting Musculoskeletal: Musculoskeletal: Denies back pain, Denies arthralgias and Denies joint swelling [facility] Past Medical History Medical History (Updated 06/04/22 @ 22:20 by Jamie Pires MD) History of coronary artery disease History of essential hypertension History of hyperlipidemia History of irregular heartbeat Surgical History Surgical History (Updated 06/04/22 @ 21:36 by Jamie Pires MD) History of percutaneous coronary intervention Social History Social History (Updated 06/04/22 @ 21:37 by Jamie Pires MD) Social History: Patient quit smoking the day he had a STEMI. April 2022. Smoking packs per day: 0.5 Smoking cigarettes per day: 10.0 Years smoked: 44 Smoking pack-years: 22.00 Smoking status: Current every day smoker Tobacco type: cigarettes Alcohol intake: former Substance use: never Spiritual care concerns: No Exam Narrative: GENERAL: Well-appearing, well-nourished, and in no acute distress. HEAD: Normocephalic, atraumatic. EYES: PERRL and EOMI. ENT: Mucous membranes moist. NECK: Supple. NO neck tenderness of SCM spasm/tenderness. CHEST: Clear to auscultation. No respiratory distress. HEART: Regular rate and rhythm. Normal peripheral pulses. ABDOMEN: Soft, nontender, nondistended. EXTREMITIES: Normal range of motion. No edema. SKIN: Warm, dry, no rash. NEURO: Alert and oriented x3. PSYCH: Normal mood and affect. Course Course Emergency Course: I have discussed the case with cardiology on-call Dr. Sims. Since patient is still having 7 out of 10 pain he would like the patient be started on a heparin drip. He would also like the patient to receive additional morphine. If patient requires Ativan that is okay as well. He thinks the patient should be admitted to the hospital service given patient's persistent pain will likely need bedside reevaluation. Patient did have an episode on the compliance monitor where he had frequent PACs. These were printed and put on the chart. Vital Signs Vital signs: Vital Signs Temperature 97.7 F 06/04/22 19:45 Pulse Rate 77 06/04/22 19:45 Respiratory Rate 17 06/04/22 19:45 Pulse Oximetry 98 06/04/22 19:45 Oxygen Delivery Room Air 06/04/22 19:45 Temperature 97.7
--- NOTE | 2022-06-04 19:52 | ECG_ITS ---
Measurements Intervals [place] Rate: 77 P: 35 MS: 153 QRS: -16 QRSD: 129 T: -30 QT: 364 QTc: 414 Interpretive Statements SINUS RHYTHM RIGHT BUNDLE-BRANCH BLOCK INFERIOR MYOCARDIAL INFARCTION, OF INDETERMINATE AGE ABNORMAL ECG COMPARED TO ECG 05/07/2022 11:22:46 NO SIGNIFICANT CHANGES Electronically Signed On 06-05-2022 16:00:21 CDT by Bobby Gomez M.D.
[2022-06-04] MEDS: NITROGLYCERIN SL 0.4 MG TABLET SUBLINGUAL (19:57)
[2022-06-04 20:05] LABS: Basophils Absolute Auto 0.1 K/mm3 (0.0-0.1); Basophils Percent Auto 0.9 % (0.2-1.2); Eosinophils Absolute Auto 0.2 K/mm3 (0-0.3); Eosinophils Percent Auto 2.6 % (0-4.4); Hematocrit 41.9 % (42.0-52.0); Hemoglobin 14.7 g/dL (14.0-18.0); Immature Granulocyte Absolute 0.02 K/mm3 (0.00-0.031); Immature Granulocyte Percent A 0.3 % (0-0.5); Lymphocytes Percent Auto 31.6 % (18.3-44.2); Mean Corpuscular HGB Conc 35.1 g/dl (32-36); Mean Corpuscular Hemoglobin 31.7 pg (26-34); Mean Corpuscular Volume 90.3 fl (80-100); Mean Platelet Volume 9.9 fl (7.4-10.4); Monocytes Absolute Auto 0.8 K/mm3 (0.1-0.6); Neutrophils Absolute Auto 4.1 K/mm3 (1.3-6.7); Neutrophils Percent Auto 54.6 % (45.5-73.1); Platelet Count Result 208 k/mm3 (150-375); Red Blood Count 4.64 M/mm3 (4.6-6.20); Red Cell Distribution Width 13.7 % (11.5-14.5); White Blood Count 7.6 K/mm3 (4.5-10.0)
[2022-06-04 20:15] LABS: INR 1.1; Prothrombin Time 13.9 Seconds (11.1-14.7)
[2022-06-04 20:16] LABS: Partial Thromboplastin Time 28.3 SECONDS (22.3-36.8)
[2022-06-04 20:20] LABS: Alanine Aminotransferase 59 U/L (6-50); Albumin Level 4.4 g/dL (3.5-5.1); Alkaline Phosphatase 81 U/L (38-126); Anion Gap 11 mmol/L (8-16); Aspartate Amino Transferase 45 U/L (17-59); Bilirubin,Total 0.4 mg/dL (0.2-1.3); Blood Urea Nitrogen 20 mg/dL (9-20); Calcium 8.6 mg/dL (8.4-10.2); Carbon Dioxide 26 mmol/L (22-30); Chloride 103 mmol/L (98-107); Estimated CRCL calculation 65 ml/min; Estimated Glomerular Filt Rate > 60; Glucose 96 mg/dL (65-110); Lipase 51 U/L (23-300); Potassium 3.6 mmol/L (3.4-5.0); Sodium 140 mmol/L (137-145)
[2022-06-04 20:30] LABS: Troponin I < 0.012 ng/mL (0.000-0.034)
--- NOTE | 2022-06-04 20:31 | ECG_ITS ---
Measurements Intervals [place] Rate: 63 P: 29 AL: 135 QRS: -13 QRSD: 128 T: -34 QT: 395 QTc: 406 Interpretive Statements SINUS RHYTHM RIGHT BUNDLE BRANCH BLOCK [120+ ms QRS DURATION, UPRIGHT V1, 40+ ms S IN I/aVL/V4/V5/V6] POSSIBLE ANTERIOR MYOCARDIAL INFARCTION , OF INDETERMINATE AGE [30 ms Q WAVE IN V3/V4, OR R < 0.2 mV IN V4] INFERIOR INFARCTION, OLD MODERATE T-WAVE ABNORMALITY, CONSIDER INFERIOR ISCHEMIA [-0.1+ mV T-WAVE IN II/aVF] ABNORMAL ECG Electronically Signed On 06-08-2022 9:54:41 CDT by Gerber Sims M.D.
--- NOTE | 2022-06-04 21:52 | ECG_ITS ---
Measurements Intervals [place] Rate: 55 P: 49 MI: 141 QRS: -13 QRSD: 118 T: -33 QT: 413 QTc: 397 Interpretive Statements SINUS BRADYCARDIA INCOMPLETE RIGHT BUNDLE BRANCH BLOCK [90+ ms QRS DURATION, TERMINAL R IN V1/V2, 40+ ms S IN I/aVL/V4/V5/V6] INFERIOR MYOCARDIAL INFARCTION , OF INDETERMINATE AGE [40+ ms Q WAVE AND/OR ST/T ABNORMALITY IN II/aVF] CANNOT RULE OUT ANTERIOR INFARCTION ABNORMAL ECG Electronically Signed On 06-08-2022 9:55:03 CDT by Gerber Sims M.D.
[2022-06-05] VITALS (18 sets, daily range): BP systolic 107–127; BP diastolic 62–78; PULSE 48–79; RESP 12–18; TEMP 36–36.5; O2SAT 95–100; BMI 28.3
[2022-06-05] MEDS: HEPARIN SODIUM 5,000 UNITS/ML VIAL 4000 UNITS IV PUSH ×2 (00:03→06:59)
[2022-06-05] MEDS: HEPARIN SOD/D5W 100 UNITS/ML 25,000 UNITS/250 ML BAG 8 UNITS IV CONT (00:06)
--- NOTE | 2022-06-05 00:25 | ADMGEN ---
This patient, Naresh Hernandez, was admitted to IMU Room 200-01. Patient/family oriented to hospital policies and general routines including ID bracelet, bed and alarms, visiting hours, pain management, procedures, bathroom and other care routines, personal items, smoking policy, room service/diet, and visiting hours. Information on how to activate the Rapid Response Team has been discussed. Patient/Family are encouraged to report perceived risks to care and to ask questions if they do not understand what they are told or what they should do.
[2022-06-05 02:33] LABS: Troponin I 0.016 ng/mL (0.000-0.034)
--- NOTE | 2022-06-05 03:02 | PM.IMHP ---
H&P: HPI History of Present Illness Date/Time: 06/05/22 03:02 Chief Complaint: Chest pain Narrative: 52-year-old male with a past medical history of hypercholesterolemia, GERD, hypertension and recent RCA STEMI who presented to the ER with recurrent chest pain. The patient reports that the pain started value of sitting down and eating. Pain is pressure-like in nature. is in the left chest radiating to left arm and up to his jaw. He reports the pain is been persistent despite nitro given by EMS. pain is been intractable and is not reproducible to palpation. Pain is similar to when he has heart attack. He received morphine via AMS without improvement in his symptoms. He states that he has been having intermittent episodes of chest pain as well that will occasionally wake him from sleep. He denies feeling anxious or having increased stress. He did quit smoking the day of his STEMI. He has been compliant with his Plavix aspirin and antihypertensives. He has not had any associated nausea or vomiting. He followed up with vending mechanic last week and was told symptoms could be due to muscle wall pain. The patient has not yet started cardiac rehab because he was having discomfort in his groin where he had his intervention performed. That discomfort has resolved. He is not having any fevers or chills. He denies any palpitations, lower extremity swelling or orthopnea. Review of Systems Review of Systems: 12 systems were reviewed with pertinent positives and negatives per HPI. Except as documented in the HPI, all other systems were reviewed and are negative. [facility] Past Medical History Medical History Coronary artery disease Essential hypertension History of irregular heartbeat Hyperlipidemia Spinal stenosis of lumbar region He reports that he was supposed to have surgery 10 years ago but did not quit smoking have surgery. He still has daily pain but does not take pain medications. Surgical History Surgical History History of appendectomy History of percutaneous coronary intervention (05/06/22) 100% RCA occlusion with revascularization with Orsiro drug-eluting stent History of repair of left rotator cuff History of tonsillectomy Family History Family History Father , Age 63 Acute myocardial infarction Sibling Healthy female adult Mother Hypertension Social History Social History (Updated 06/05/22 @ 06:09 by Noemi Huerta, ) Social History: He lives at home with his of 23 years. They have a 21-year-old daughter who has autism for which she is the primary caregiver and a [id number] dad. They have a 19-year-old daughter as well who is healthy. 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 He smoked up to a pack of cigarettes per day since he was 8 years old. He quit smoking May 06, 2022 when he had a STEMI. He was an alcoholic until his late 20s at which time he quit drinking alcohol. Code status: Full code Surrogate decision maker: Smoking packs per day: 0.5 Smoking cigarettes per day: 10.0 Years smoked: 44 Smoking pack-years: 22.00 Smoking status: Former smoker Tobacco type: cigarettes Alcohol intake: former Substance use: never Substance use type: does not use Spiritual care concerns: No Meds Home Medications and Allergies Home Medications Medication Instructions Recorded Confirmed Type aspirin 81 mg chewable tablet 81 mg PO DAILY@0800 30 days #30 05/07/22 06/05/22 Rx (Children's Aspirin) tabs losartan 25 mg tablet 25 mg PO DAILY 30 days #30 tabs 05/07/22 06/05/22 Rx rosuvastatin 10 mg tablet (Crestor) 20 mg PO DAILY 30 days #60 tabs 05/07/22 06/05/22 Rx clopidogrel 75 mg tablet 75 mg PO DAILY 06/05/22 06/05/22 History metoprolol succinate 50 mg 50 mg PO DAILY 06/05/22
[2022-06-05 06:30] LABS: Basophils Absolute Auto 0.1 K/mm3 (0.0-0.1); Basophils Percent Auto 0.9 % (0.2-1.2); Eosinophils Absolute Auto 0.2 K/mm3 (0-0.3); Eosinophils Percent Auto 3.2 % (0-4.4); Hematocrit 40.3 % (42.0-52.0); Hemoglobin 13.8 g/dL (14.0-18.0); Immature Granulocyte Absolute 0.01 K/mm3 (0.00-0.031); Immature Granulocyte Percent A 0.1 % (0-0.5); Lymphocytes Percent Auto 38.7 % (18.3-44.2); Mean Corpuscular HGB Conc 34.2 g/dl (32-36); Mean Corpuscular Hemoglobin 31.2 pg (26-34); Monocytes Absolute Auto 0.6 K/mm3 (0.1-0.6); Monocytes Percent Auto 7.9 % (2.6-8.5); Neutrophils Absolute Auto 3.4 K/mm3 (1.3-6.7); Neutrophils Percent Auto 49.2 % (45.5-73.1); Platelet Count Result 180 k/mm3 (150-375); Red Blood Count 4.43 M/mm3 (4.6-6.20); Red Cell Distribution Width 13.5 % (11.5-14.5)
[2022-06-05 06:42] LABS: Partial Thromboplastin Time 53.4 SECONDS (22.3-36.8)
[2022-06-05] MEDS: HYDROcodone/acetaminophen (*CRX) 5-325 MG TABLET 1 TAB PO (08:24)
[2022-06-05] MEDS: LOSARTAN POTASSIUM 25 MG TABLET PO (08:25)
[2022-06-05] MEDS: ROSUVASTATIN 10 MG TABLET 20 MG PO (08:25)
[2022-06-05] MEDS: PANTOPRAZOLE 40 MG TABLET PO (08:25)
[2022-06-05] MEDS: METOPROLOL SUCCINATE EXT REL 50 MG TABCR PO (08:25)
[2022-06-05] MEDS: CLOPIDOGREL BISULFATE 75 MG TABLET PO (08:25)
[2022-06-05] MEDS: ASPIRIN 81 MG CHEWABLE TABLET PO (08:28)
--- NOTE | 2022-06-05 08:50 | PM.IMPN ---
Progress Note: A&P Assessment and Plan (1) Chest pain: Code(s): R07.9 - Chest pain, unspecified Status: Acute Assessment and Plan: Patient was having chest pain similar to prior episode of chest pain with a STEMI. However, his EKG was stable and his troponins have been negative. Patient has been compliant with his home Plavix and he has quit smoking. No evidence of acute ischemic event. Cardiology has been consulted. Patient is being monitored in the IMU. Continue to Monitor vital signs, I&Os, chest pain, shortness of breath and patient is a fall risk Monitor PTT, serial troponins, Serum electrolytes, and cbc Keep serum potassium >4 and keep magnesium >2 Cardiology consulted, appreciate assistance and recommendations Heparin drip per ACS protocol pending echocardiogram Monitor for bloody bowel movements,chest pain,SOB or dizziness/lightheadedness patient on Crestor 20 mg daily, aspirin 81 mg daily and metoprolol succinate 50 mg daily Diet: cardiac diet DVT Px: Heparin Drip (2) History of essential hypertension: Code(s): Z86.79 - Personal history of other diseases of the circulatory system Status: Acute Assessment and Plan: Blood pressures are stable and well controlled. Patient is having some mild bradycardia with heart rates in the 50s but he is asymptomatic. Continue home metoprolol succinate and losartan (3) History of hyperlipidemia: Code(s): Z86.39 - Personal history of other endocrine, nutritional and metabolic disease Status: Acute Assessment and Plan: Will continue home Crestor. (4) Tobacco use: Code(s): Z72.0 - Tobacco use Status: Acute Assessment and Plan: He quit smoking the day of his STEMI 05/06/2022. Subjective Date/time seen: 06/05/22 08:50 patient is alert and oriented x4. He is sitting up in bed. Patient continues complaining of chronic chest pain. Changes in relieved with IV pain medication. Patient describes GERD like symptoms. will initiate Protonix and Pepcid. Cardiology has been consulted from the emergency department. Review of Systems Review of Systems: All systems reviewed & are unremarkable except as noted in HPI and below Exam Narrative: General: No acute distress. Mental Status: Awake, alert and oriented to person, place, and time with clear speech. Skin: Skin in warm, dry and intact without rashes or lesions. Head: Normocephalic and atraumatic. Eyes: Conjunctivae are clear without exudates or hemorrhage. Sclera is non-icteric. EOM are intact, PERRLA. Ears: The external ear and canal are non-tender and without swelling or discharge. Nose: Nasal mucosa is pink and moist. Septum midline. Nares patent bilaterally. Throat: Oral mucosa pink and moist with good dentition. Tongue midline. Neck: The neck supple without adenopathy. Trachea midline. No JVD. Cardiac: S1 and S2 regular rate and rhythm. No murmurs, gallops, or rubs auscultated. Respiratory: Chest wall symmetric, nontender and without deformity or trauma. Respirations even and unlabored. Lung sounds are clear to auscultation in all lobes bilaterally without wheezes, rhonchi, or rales. Abdominal: Abdomen soft, round and non-tender to palpation. Bowel sounds present and normoactive in all 4 quadrants. Spine: Neck and back with grossly normal curvature, no deformity in appearance or signs of trauma. Extremities: Upper and lower extremities atraumatic without tenderness or deformity. Full range of motion and muscle strength 5/5 to all extremities bilaterally. Neurological: Full and symmetric motor and light touch sensation bilaterally. Cranial nerves II-XII grossly intact. Objective Data Vital Signs Vital Signs: Vital Signs - 24 hr 06/04/22 19:45 06/04/22 19:50 06/04/22 19:50 Temperature 97.7 F Pulse Rate 77 86 Respiratory Rate 17 Blood Pressure Pulse Oximetry 98 98 Oxygen Delivery Room Air Room Air 06/04/22 19:48 08
--- NOTE | 2022-06-05 10:10 | ECG_ITS ---
Measurements Intervals [place] Rate: 53 P: 24 LA: 135 QRS: -14 QRSD: 121 T: -25 QT: 423 QTc: 397 Interpretive Statements SINUS BRADYCARDIA RIGHT BUNDLE-BRANCH BLOCK INFERIOR MYOCARDIAL INFARCTION , OF INDETERMINATE AGE ABNORMAL ECG COMPARED TO ECG 06/04/2022 21:52:15 NO SIGNIFICANT CHANGES Electronically Signed On 06-05-2022 16:09:25 CDT by Bobby Gomez M.D.
--- NOTE | 2022-06-05 10:55 | ECHO_ITS ---
Patient Info Name: Naresh Hernandez Age: 52 years : 1970 Gender: Male Ht: 64 in Wt: 165 lbs BSA: 1.86 m2 HR: 50 bpm BP: 127 / 72 mmHg Heart Rhythm: Sinus Rhythm, Bradycardia Technical Quality: Good Exam Date: 06/05/2022 1:10 PM Exam Location: [facility] Pulmonary Exam Room: [facility] Patient Status: Inpatient Admit Date: 06/04/2022 Staff Ordering Physician: Bobby Gomez MD Office Support Specialist: Tiffanie De Los Santos RDCS Attending Provider: Noemi Huerta DO Referring Physician: Patricia CLIFFORD; Exam Type: CA echo doppler color flow Study Info Indications - inferior STEMI R07.89 - Other chest pain Complete two-dimensional, color flow and Doppler transthoracic echocardiogram is performed. Summary 1. Complete two-dimensional, color flow and Doppler transthoracic echocardiogram is performed. 2. Left ventricular chamber dimension is normal. 3. Left ventricular systolic function is normal, estimated at 65-70%. 4. There is no increased left ventricular wall thickness. 5. The left ventricular diastolic function is normal. 6. There is mild mitral valve regurgitation. 7. There is trace tricuspid valve regurgitation. 8. No pulmonary hypertension, estimated pulmonary arterial systolic pressure is 33 mmHg. 9. Mild thickening and increased echogenicity of the pericardium. 10. There is small pericardial effusion. Left Ventricle Left ventricular chamber dimension is normal. Left ventricular systolic function is normal, estimated at 65-70%. There is no increased left ventricular wall thickness. The left ventricular diastolic function is normal. Right Ventricle Right ventricular chamber dimension is normal. Right ventricular systolic function is normal. Left Atria Left atrial chamber dimension is normal. Right Atria Right atrial chamber dimension is normal. Aortic Valve The aortic valve is trileaflet. There is mild aortic valve sclerosis. There is no aortic valve stenosis. There is no aortic valve regurgitation. Pulmonic Valve The pulmonic valve is not well visualized. There is mild pulmonic regurgitation. Mitral Valve The mitral valve has normal leaflets. There is mild mitral valve regurgitation. The mitral valve annulus is mildly calcified. Tricuspid Valve The tricuspid valve leaflets are normal. There is trace tricuspid valve regurgitation. No pulmonary hypertension, estimated pulmonary arterial systolic pressure is 33 mmHg. Pericardium/Pleural Mild thickening and increased echogenicity of the pericardium. There is small pericardial effusion. Inferior Vena Cava Normal inferior vena cava with >50% collapse upon inspiration consistent with normal right atrial pressure, 5 mmHg. Aorta The aortic root size at the sinus of Valsalva is normal. The prox ascending aorta size is normal. Left Ventricular Outflow Tract Name Value Normal LVOT 2D LVOT Diameter 2.0 cm LVOT Doppler LVOT Peak Gradient 5 mmHg LVOT Mean Gradient 3 mmHg LVOT VTI 23 cm LVOT VTI/AV VTI Ratio
[2022-06-05 11:47] LABS: CRP < 0.5 mg/dL (<1.0)
[2022-06-05] MEDS: ACETAMINOPHEN 325 MG TABLET 650 MG PO ×3 (11:57→20:25)
[2022-06-05] MEDS: RANOLAZINE 500 MG TAB.ER.12H PO ×2 (11:57→20:25)
[2022-06-05 12:18] LABS: Erythrocyte Sedimentation Rate 15 mm/hr (0-20)
--- NOTE | 2022-06-05 13:57 | PM.CNCAR ---
Assessment and Plan Assessment and plan (1) Chest pain: Qualifiers: Chest pain type: other chest pain Qualified Code(s): R07.89 - Other chest pain Code(s): R07.9 - Chest pain, unspecified Status: Acute Assessment and Plan: Atypical chest pain occurring randomly and at rest worse with deep breathing, coughing nonpositional. Troponins negative serially without new acute ischemic EKG changes. Given the fact his troponins are negative is clear he is not suffering from acute stent thrombosis. He has no significant angiographic disease in the LAD, left main, and or circumflex distributions therefore residual myocardial ischemia due to underlying CAD very unlikely patient is afebrile but notes ongoing shortness of breath, intermittent significant chest pain. We discussed at length potential for post myocardial infarction inflammatory chest pain syndrome such as Cecelia syndrome yet patient noted the onset of the symptoms immediately after his OR and states they never resolved. Typically, this onset is much sooner than would be expected for this condition and his ECG is not consistent with acute changes suggestive of pericarditis. While his symptoms are pleuritic in nature and may be noncardiac and or musculoskeletal a cannot exclude process such as Cecelia syndrome. Nonetheless, treatment will be somewhat problematic given his history of acid reflux on PPI particular as general recommendation is high-dose aspirin as preferred post OR if necessary. This would increase his risk for GI upset and or bleeding in conjunction with clopidogrel. Will check a CRP, sedimentation rate. Repeat 2D echo cardiac to assess pericardium, LV size/function, wall motion abnormalities. Further recommendation to follow. Discussed with Dr. Johnson as well. Will add Ranexa 500 mg twice daily and observe response. 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 Will check 1 more troponin as well. Continue telemetry. Continue medical therapy including dual antiplatelet therapy, metoprolol, rosuvastatin and losartan. Patient and his verbalized understanding and agreed with plan of care. All questions answered to their satisfaction. Further recommendation to follow. While I think it is prudent to avoid repeat angiography we discussed the relative risks and benefits repeat coronary angiography unnecessary. Patient verbalized understanding. (2) CAD (coronary artery disease): Qualifiers: Coronary Disease-Associated Artery/Lesion type: [place] artery [place] vs. transplanted heart: [place] heart Associated angina: with unspecified form of angina Qualified Code(s): I25.119 - Atherosclerotic heart disease of [place] coronary artery with unspecified angina pectoris Code(s): I25.10 - Atherosclerotic heart disease of [place] coronary artery without angina pectoris Status: Acute Assessment and Plan: As above, status post 3.5 x 23 mm drug-eluting stent to RCA in setting of inferior STEMI 05/06/22. EF improved and wall motion abnormalities resolved by echo post OR prior to discharge. (3) Essential hypertension: Code(s): I10 - Essential (primary) hypertension Status: Acute Assessment and Plan: Stable, no acute issues at this time. Continue medical therapy. (4) Hyperlipidemia: Qualifiers: Hyperlipidemia type: mixed hyperlipidemia Qualified Code(s): E78.2 - Mixed hyperlipidemia Code(s): E78.5 - Hyperlipidemia, unspecified Status: Acute Assessment and Plan: Continue statin therapy, goal LDL less than 70. (5) H/O myocardial infarction less than 8 weeks: Status: Acute Assessment and Plan: As above. History of Present Illness History of Present Illness Consult date/time: Date of service: 06/05/22 13:57 Requesting physician: Noemi Huerta,
[2022-06-05] MEDS: FAMOTIDINE 20 MG TABLET PO (20:25)
[2022-06-06] VITALS (8 sets, daily range): BP systolic 109–158; BP diastolic 67–87; PULSE 42–54; RESP 16–18; TEMP 36.1–36.6; O2SAT 96–97
[2022-06-06 04:48] LABS: Basophils Percent Auto 0.8 % (0.2-1.2); Eosinophils Absolute Auto 0.2 K/mm3 (0-0.3); Hemoglobin 14.3 g/dL (14.0-18.0); Immature Granulocyte Absolute 0.01 K/mm3 (0.00-0.031); Immature Granulocyte Percent A 0.2 % (0-0.5); Lymphocytes Absolute Auto 1.83 K/mm3 (0.9-3.2); Lymphocytes Percent Auto 36.7 % (18.3-44.2); Mean Corpuscular Hemoglobin 31.1 pg (26-34); Mean Corpuscular Volume 91.3 fl (80-100); Monocytes Absolute Auto 0.4 K/mm3 (0.1-0.6); Monocytes Percent Auto 8.8 % (2.6-8.5); Neutrophils Absolute Auto 2.5 K/mm3 (1.3-6.7); Neutrophils Percent Auto 49.5 % (45.5-73.1); Platelet Count Result 177 k/mm3 (150-375); Red Cell Distribution Width 13.8 % (11.5-14.5)
[2022-06-06 05:03] LABS: Alanine Aminotransferase 51 U/L (6-50); Albumin Level 3.8 g/dL (3.5-5.1); Alkaline Phosphatase 77 U/L (38-126); Anion Gap 6 mmol/L (8-16); Aspartate Amino Transferase 41 U/L (17-59); Bilirubin,Total 0.5 mg/dL (0.2-1.3); Blood Urea Nitrogen 16 mg/dL (9-20); Calcium 8.5 mg/dL (8.4-10.2); Carbon Dioxide 28 mmol/L (22-30); Chloride 105 mmol/L (98-107); Estimated CRCL calculation 60 ml/min; Estimated Glomerular Filt Rate > 60; Glucose 94 mg/dL (65-110); Sodium 139 mmol/L (137-145)
[2022-06-06] MEDS: ROSUVASTATIN 10 MG TABLET 20 MG PO (08:22)
[2022-06-06] MEDS: LOSARTAN POTASSIUM 25 MG TABLET PO (08:22)
[2022-06-06] MEDS: RANOLAZINE 500 MG TAB.ER.12H PO (08:22)
[2022-06-06] MEDS: FAMOTIDINE 20 MG TABLET PO (08:22)
[2022-06-06] MEDS: PANTOPRAZOLE 40 MG TABLET PO (08:23)
[2022-06-06] MEDS: CLOPIDOGREL BISULFATE 75 MG TABLET PO (08:23)
[2022-06-06] MEDS: ACETAMINOPHEN 325 MG TABLET 650 MG PO (08:25)
[2022-06-06] MEDS: ASPIRIN 81 MG CHEWABLE TABLET PO (08:25)
--- NOTE | 2022-06-06 09:12 | PM.PNCARD ---
Progress Note: A&P Assessment and Plan (1) Chest pain: Qualifiers: Chest pain type: other chest pain Qualified Code(s): R07.89 - Other chest pain Code(s): R07.9 - Chest pain, unspecified Status: Acute Assessment and Plan: Atypical chest pain occurring randomly and at rest worse with deep breathing, coughing nonpositional. Chest pain is not the result of acute myocardial infarction and/or plaque rupture or stent thrombosis. Although musculoskeletal remains consideration clinically may be consistent with post HI inflammatory state such as Cecelia's syndrome. Although not typical pattern given lack of alternative explanation will treat clinically with anti-inflammatories as tolerated. Reviewed echo revealed possible mild pericardial thickening slight increased echogenicity. However, inflammatory markers surprisingly negative including CRP and sedimentation rate. While examined EKG not consistent with pericardial inflammatory process given the duration of his symptoms I would not be surprised these more acute findings have resolved although they were not noted to be present during his last hospitalization either. Discussed options with management. All questions answered to the patient's satisfaction. He verbalized understanding and agreed with plan of care. Discussed with Dr. Johnson as well. 1. Discontinue ranolazine 2. Enteric-coated aspirin 650 mg p.o. q.8 hours 1st dose now with full glass of water and food. Counseled increased risk for GI upset, bleeding particularly in combination with clopidogrel. Will plan for 650 mg p.o. q.8 hours for 3 days then reduce to 650 mg twice daily for 1 week in 650 mg daily for 1 week. He is not to lie down for least 2 hours after aspirin dosing. 3. Continue pantoprazole 40 mg daily for GI protection. 4. Add colchicine 1.2 mg p.o. x1 now. Maintenance dose colchicine 0.6 mg twice daily for 30 days. Counseled on side effects, risks and benefits. Patient agrees. 5. If tolerating medical therapy may be discharged home today to follow up with Dr. Johnson as an outpatient in the next 2 to 4 weeks. 6. He is to monitor for bleeding including bright red blood per rectum or black tarry stools, GI upset or medication intolerance and report immediately. He understands. (2) CAD (coronary artery disease): Qualifiers: Coronary Disease-Associated Artery/Lesion type: [place] artery [place] vs. transplanted heart: [place] heart Associated angina: with unspecified form of angina Qualified Code(s): I25.119 - Atherosclerotic heart disease of [place] coronary artery with unspecified angina pectoris Code(s): I25.10 - Atherosclerotic heart disease of [place] coronary artery without angina pectoris Status: Acute Assessment and Plan: As above, status post 3.5 x 23 mm drug-eluting stent to RCA in setting of inferior STEMI 05/06/22. EF improved and wall motion abnormalities resolved by echo post HI prior to discharge. (3) Essential hypertension: Code(s): I10 - Essential (primary) hypertension Status: Acute Assessment and Plan: Stable, no acute issues at this time. Continue medical therapy. (4) Hyperlipidemia: Qualifiers: Hyperlipidemia type: mixed hyperlipidemia Qualified Code(s): E78.2 - Mixed hyperlipidemia Code(s): E78.5 - Hyperlipidemia, unspecified Status: Acute Assessment and Plan: Continue statin therapy, goal LDL less than 70. (5) H/O myocardial infarction less than 8 weeks: Status: Acute Assessment and Plan: As above. Subjective Date/time seen: Date of service: 06/06/22 09:12 Follow-up for history of STEMI in April, chest pain Patient feels a little better this morning. Still has some residual mild discomfort, mild shortness of breath with activity otherwise feels fairly well and at his baseline. No new issues overnight. Still little discomfort with deep breathing. Review of Systems
--- NOTE | 2022-06-06 09:29 | PHAR ---
Steve with Dr. Gomez about aspirin dosage and he verified that he wants 650mg tid to start and will taper back down eventually to 81mg daily.
[2022-06-06] MEDS: ASPIRIN 325 MG ENTERIC TABLET 650 MG PO (09:38)
[2022-06-06] MEDS: COLCHICINE 0.6 MG TABLET 1.2 MG PO (09:39)
[2022-06-06] MEDS: METOPROLOL SUCCINATE EXT REL 25 MG TABCR PO (09:39)
--- NOTE | 2022-06-06 10:02 | PM.DS ---
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 However, his EKG was stable and his troponins have been negative. Patient has been compliant with his home Plavix and he has quit smoking. No evidence of acute ischemic event. Cardiology has been consulted. Patient is being monitored in the IMU. Continue to Monitor vital signs, I&Os, chest pain, shortness of breath and patient is a fall risk Monitor PTT, serial troponins, Serum electrolytes, and cbc Keep serum potassium >4 and keep magnesium >2 Cardiology consulted, appreciate assistance and recommendations Heparin drip per ACS protocol pending echocardiogram Monitor for bloody bowel movements,chest pain,SOB or dizziness/lightheadedness patient on Crestor 20 mg daily, aspirin 81 mg daily and metoprolol succinate 50 mg daily Diet: cardiac diet DVT Px: Heparin Drip (2) History of essential hypertension: Code(s): Z86.79 - Personal history of other diseases of the circulatory system Status: Acute Assessment and Plan: Blood pressures are stable and well controlled. Patient is having some mild bradycardia with heart rates in the 50s but he is asymptomatic. Continue home metoprolol succinate and losartan (3) History of hyperlipidemia: Code(s): Z86.39 - Personal history of other endocrine, nutritional and metabolic disease Status: Acute Assessment and Plan: Will continue home Crestor. (4) Tobacco use: Code(s): Z72.0 - Tobacco use Status: Acute Assessment and Plan: He quit smoking the day of his STEMI 05/06/2022. 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 The patient reports that the pain started value of sitting down and eating.? Pain is pressure-like in nature. ? is in the left chest radiating to left arm and up to his jaw.? He reports the pain is been persistent despite nitro given by EMS. pain is been intractable and is not reproducible to palpation.? Pain is similar to when he has heart attack.? He received morphine via [facility] without improvement in his symptoms.? He states that he has been having intermittent episodes of chest pain as well that will occasionally wake him from sleep.? He denies feeling anxious or having increased stress.? He did quit smoking the day of his STEMI.? He has been compliant with his Plavix aspirin and antihypertensives.? He has not had any associated nausea or vomiting.? He followed up with embedded software test engineer last week and was told symptoms could be due to muscle wall pain. While in the emergency department labs and imaging were obtained. Patient had a WBC of 7.6, hemoglobin 14.7, hematocrit 41.9 and platelet 208 with normal LFTs, potassium 3.6, sodium 140, BUN 29 creatinine of 1.0. Negative troponins. Chest x-ray did not reveal acute cardiopulmonary process. EKG revealed sinus rhythm with right ventricular conduction delay lateral and inferior SD unchanged from the prior QTC of 414. The patient was hospitalized underneath the hospitalist service for atypical chest pain and Cardiology was consulted. Cardiology had ordered Ranexa to be administered. Patient was unable to tolerate Ranexa. He reported he felt dizzy or lightheaded and very tired, therefore this medication was discontinued prior to his dischar
== END 2022-06-06 12:40 | disposition home or self-care (01) ==
LOC: ANHED 22:20 → ANHIMU 06-05 01:11
PROVIDERS: Internal Medicine Cardiovascular Disease; Admitting Provider Internal Medicine; Emergency Provider Emergency Medicine; Visit Provider Nurse Practitioner Family
DX: R07.89 Other chest pain (principal); I10 Essential (primary) hypertension; R00.1 Bradycardia, unspecified; K21.9 Gastro-esophageal reflux disease without esophagitis; Z87.891 Personal history of nicotine dependence; F10.21 Alcohol dependence, in remission; I25.119 Atherosclerotic heart disease of native coronary artery with unspecified angina pectoris; Z95.5 Presence of coronary angioplasty implant and graft; R06.00 Dyspnea, unspecified; I45.10 Unspecified right bundle-branch block; I25.2 Old myocardial infarction; E78.5 Hyperlipidemia, unspecified; M48.061 Spinal stenosis, lumbar region without neurogenic claudication; I34.0 Nonrheumatic mitral (valve) insufficiency; I31.3 Pericardial effusion (noninflammatory); Z86.39 Personal history of other endocrine, nutritional and metabolic disease; Z91.81 History of falling; Z79.82 Long term (current) use of aspirin; Z79.02 Long term (current) use of antithrombotics/antiplatelets; Z79.899 Other long term (current) drug therapy
CPT/HCPCS: 36415; 71046; 80053; 83690; 84484; 85025; 85610; 85652; 85730; 86140; 93005; 93306; 96365; 96366; 99285; A9270; G0378; G0379; J1644

== ENCOUNTER 2022-07-05 08:01 | Outpatient (RCR) | payer OTHER, SELFPAY | END 2022-07-15 18:26 | disposition home or self-care (01) | LOC: ANHCPREHAB 08:01 | PROVIDERS: PCP Physician Assistant; Visit Provider Nurse Practitioner | DX: I25.2 Old myocardial infarction (principal) | CPT/HCPCS: 93798 ==

== ENCOUNTER 2022-08-21 08:06 | Outpatient (CLI) | payer OTHER, SELFPAY ==
--- NOTE | ~2022-08-21 | XR_ITS ---
EXAMINATION: XR chest 2V DATE: 08/21/2022 08:39 INDICATION: Dyspnea on exertion TECHNIQUE: PA and lateral views of the chest are obtained. COMPARISON: 06/04/2022 FINDINGS: The lungs are free of acute opacities. No pleural effusion or pneumothorax. The cardiomedia stinal silhouette is normal. There is mild thoracic spondylosis. IMPRESSION: 1. No acute cardiopulmonary abnormality. Reviewed, dictated and finalized at location [facility]
[2022-08-21 09:02] LABS: NT Pro B Type Natriuretic Pept 78 pg/mL (5-100)
[2022-08-21 09:12] LABS: D Dimer 0.42 ug/mL (<0.48)
== END 2022-08-21 08:07 | disposition home or self-care (01) ==
PROVIDERS: PCP Physician Assistant; Visit Provider Internal Medicine
DX: R06.09 Other forms of dyspnea (principal)
CPT/HCPCS: 36415; 71046; 83880; 85380

== ENCOUNTER 2022-10-16 13:36 | Outpatient (CLI) | payer OTHER, SELFPAY | END 2022-10-16 13:37 | disposition home or self-care (01) | LOC: ANHAUDIO 13:37 | PROVIDERS: PCP Physician Assistant; Visit Provider Physician Assistant | DX: H90.3 Sensorineural hearing loss, bilateral (principal) | CPT/HCPCS: 92557; 92567 ==

== ENCOUNTER 2022-10-25 01:06 | Day surgery (SDC) | payer OTHER, SELFPAY ==
[2022-10-24 12:30] VITALS: BP 126/77; PULSE 46; RESP 12; O2SAT 98
[2022-10-25] VITALS (10 sets, daily range): BP systolic 122–139; BP diastolic 70–86; PULSE 44–50; RESP 12–17; TEMP 36.3–36.4; O2SAT 96–99; BMI 29.5
[2022-10-25 08:59] LABS: Basophils Absolute Auto 0.1 K/mm3 (0.0-0.1); Basophils Percent Auto 1.2 % (0.2-1.2); Eosinophils Absolute Auto 0.2 K/mm3 (0-0.3); Eosinophils Percent Auto 2.5 % (0-4.4); Hemoglobin 15.6 g/dL (14.0-18.0); Immature Granulocyte Absolute 0.01 K/mm3 (0.00-0.031); Immature Granulocyte Percent A 0.2 % (0-0.5); Lymphocytes Absolute Auto 2.08 K/mm3 (0.9-3.2); Lymphocytes Percent Auto 31.9 % (18.3-44.2); Mean Corpuscular HGB Conc 35.5 g/dl (32-36); Mean Corpuscular Hemoglobin 30.8 pg (26-34); Mean Platelet Volume 9.8 fl (7.4-10.4); Monocytes Absolute Auto 0.6 K/mm3 (0.1-0.6); Monocytes Percent Auto 8.9 % (2.6-8.5); Neutrophils Absolute Auto 3.6 K/mm3 (1.3-6.7); Neutrophils Percent Auto 55.3 % (45.5-73.1); Platelet Count Result 203 k/mm3 (150-375); Red Blood Count 5.06 M/mm3 (4.6-6.20); Red Cell Distribution Width 12.3 % (11.5-14.5); White Blood Count 6.5 K/mm3 (4.5-10.0)
[2022-10-25 09:08] LABS: Anion Gap 7 mmol/L (8-16); Blood Urea Nitrogen 14 mg/dL (9-20); Calcium 8.9 mg/dL (8.4-10.2); Carbon Dioxide 25 mmol/L (22-30); Chloride 106 mmol/L (98-107); Estimated CRCL calculation 81 ml/min; Estimated Glomerular Filt Rate > 60; Glucose 106 mg/dL (65-110); Potassium 4.4 mmol/L (3.4-5.0); Sodium 138 mmol/L (137-145)
--- NOTE | 2022-10-25 09:56 | WPDMODSED ---
Moderate Sedation Note-Pt Data Patient Data Diagnosis: coronary artery disease with previous inferior wall ND treated with RCA PCI Present Complaint: intermittent chest pain largely atypical of angina Procedure to be performed/Plan: left heart catheterization Allergies Allergy/AdvReac Type Severity Reaction Status Date / Time Penicillins Allergy Anaphylaxis Verified 10/25/22 08:39 bee venom protein (honey bee) AdvReac Intermediate Redness of Verified 10/25/22 08:39 Skin Home Medications Medication Instructions Recorded Confirmed Type losartan 25 mg tablet 25 mg PO DAILY 30 days #30 tabs 05/07/22 10/25/22 Rx clopidogrel 75 mg tablet 75 mg PO DAILY 06/05/22 10/25/22 History metoprolol succinate 25 mg 50 mg PO DAILY 07/05/22 10/25/22 History tablet,extended release 24 hr (Toprol XL) albuterol sulfate 90 mcg/actuation 2 puff inhalation Q4-6H PRN 10/25/22 10/25/22 History aerosol inhaler Shortness Of Breath aspirin 81 mg tablet 81 mg PO DAILY 10/25/22 10/25/22 History fluticasone 500 mcg-salmeterol 50 1 inh inhalation BID 10/25/22 10/25/22 History mcg/dose blistr powdr for inhalation (Advair Diskus) rosuvastatin 10 mg tablet (Crestor) 40 mg PO DAILY 10/25/22 10/25/22 History Current Medications: Active Medications Sodium Chloride (Normal Saline Iv) 500 mls @ 100 mls/hr IV CONT .Q5H JASON Sedation/Anesthesia: No previous sedation/anesthesia problems (including family history). [facility] Past Medical History Medical History (Updated 06/05/22 @ 14:08 by Bobby Gomez MD) Coronary artery disease Essential hypertension History of irregular heartbeat Hyperlipidemia Spinal stenosis of lumbar region He reports that he was supposed to have surgery 10 years ago but did not quit smoking have surgery. He still has daily pain but does not take pain medications. Surgical History Surgical History History of appendectomy History of percutaneous coronary intervention (05/06/22) 100% RCA occlusion with revascularization with Orsiro drug-eluting stent History of repair of left rotator cuff History of tonsillectomy Family History Family History (Updated 07/05/22 @ 08:37 by Brittny Ford RN) Father , Age 73 Acute myocardial infarction from ND age 73 HLD (hyperlipidemia) Hypertension Sibling Healthy female adult Mother Hypertension Other CAD (coronary artery disease) Social History Social History Social History: He lives at home with his of 23 years. They have a 21-year-old daughter who has autism for which she is the primary caregiver and a [id number] dad. They have a 19-year-old daughter as well who is healthy. 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 He smoked up to a pack of cigarettes per day since he was 8 years old. He quit smoking May 06, 2022 when he had a STEMI. He was an alcoholic until his late 20s at which time he quit drinking alcohol. Code status: Full code Surrogate decision maker: Smoking packs per day: 0.5 Smoking cigarettes per day: 10.0 Years smoked: 34 Smoking pack-years: 17.00 Smoking status: Former smoker Tobacco type: cigarettes Smoking end date: 05/06/22 Additional smoking assessment comments: states he quit cold turkey the day he had his ND Alcohol intake: former Substance use: never Substance use type: does not use Living arrangements: with family Spiritual care concerns: No Mod Sed Physical Exam Physical Exam Pre Procedural Exam: Normal: Appearance, Neck, Throat, Airway, Lungs, Heart Size, Heart Rate, Heart Rhythm, Neuro Exam and Extremities Hours since solid foods: 12 Hours since liquid intake: 12 Mallampati Classification: class II Internal Medicine - PN: Obj Da Vital Signs Vital Signs: Vital Signs - 24 hr
--- NOTE | 2022-10-25 10:35 | WPDCARDPROC ---
Cardiac Cath Procedure Note Date of procedure:: 10/25/22 Performing physician:: Gianni Johnson MD Indication:: intermittent chest pain Brief clinical history:: this is a 52-year-old man who is known to have coronary disease he presented in April of 2022 with acute inferior wall TX and underwent successful PCI using drug-eluting stent to the RCA. He has been reporting intermittent episodes of chest pain that are largely atypical of angina. This is however still creating a large level of concern regarding his coronary status and a follow-up angiogram has been scheduled for this morning in this setting. Procedure Procedure performed:: Left ventriculogram coronary angiogram Angio-Seal to right femoral artery Sedation/Medication given:: fentanyl 50 mg Versed 2 mg case start time 10:13 a.m. case end time 10:30 a.m. sedation provided by Rebekah Lawton RN, trained observer Access site:: right femoral artery Estimated blood loss:: 25 cc Procedure note:: patient was brought to the cardiac catheterization lab in the postabsorptive state where the right femoral triangle was prepared and draped in the normal fashion. Anesthesia was provided with 1% lidocaine infiltrated locally. Using the modified cell fingers technique a 5 Lao sheath was placed into the right common femoral artery and after this left heart catheterization was carried out. A 5 Lao angled pigtail catheter was used to measure left-sided to inject the left ventriculogram in the are AO projection. Following this pullback pressures were measured across the aortic valve. Pigtail catheter was then exchanged for a 5 Lao FL4 catheter which was used to engage and inject the left coronary artery in multiple projections. A 5 Lao JR4 catheter was then used to engage and inject the right coronary artery in orthogonal projections. Following this the procedure was terminated an angiogram was performed to the femoral artery through the sheath after which an Angio-Seal device was deployed with a good hemostatic result. The procedure was well tolerated and uncomplicated. There was no evidence of groin hematoma has he left the cardiac labor/excavator. Patient was brought to the holding area for post cath recovery in good condition. Findings:: Hemodynamics: Central aortic pressure is 1 26 over 70 left ventricle 126/5 end-diastolic pressure 16 there is no gradient pullback across the aortic valve. Left ventricle: The LV is of normal size the inferior wall is mildly hypodynamic the remainder of the LV contracts normally the global ejection fraction is 55% by visual estimation. The left main coronary artery is widely patent the left anterior descending is a medium caliber artery extending down to the apex the LAD and its branches are smooth and angiographically free of disease. The circumflex is a large caliber vessel extending to the lateral wall fixed providing flow to the marginal branches. The circumflex is smooth and angiographically normal in appearance the right coronary artery is moderate caliber dominant to the posterior circulation. There is visible stent material all in the 2nd portion of the right coronary artery which remains widely patent the right coronary has no significant lesions there is no loss of lumen progressive disease or angiographic the concern that would explain recurrent chest pain. Conclusion:: 1. Right coronary dominant circulation with currently no evidence of any coronary stenosis previously deployed stent from April of 2022 remains widely patent with no loss of lumen 2. mild residual inferior hypokinesia with overall normal ejection fraction inferior wall was frankly akinetic during the emergency procedure in April. Gianni Johnson MD [facility]
--- NOTE | 2022-10-25 12:04 | SUR.PHASEII ---
sitting up in bed without distress or c/o. rt groin puncture site remains d/i without hematoma. at bedside
== END 2022-10-25 13:40 | disposition home or self-care (01) ==
PROVIDERS: PCP Physician Assistant; Visit Provider Specialist
PROC: 4A023N7 Measurement of Cardiac Sampling and Pressure, Left Heart, Percutaneous Approach (ICD-10-PCS; CPT 93452; principal; 2022-10-25 10:00)
DX: R07.9 Chest pain, unspecified (principal); I25.10 Atherosclerotic heart disease of native coronary artery without angina pectoris
CPT/HCPCS: 36415; 80048; 85025; 93458; C1725; C1760; C1887; C1894; G0269; J1644; J2250; J3010; J7040

== ENCOUNTER 2022-11-09 17:40 | Emergency (ER) | payer OTHER, SELFPAY ==
--- NOTE | ~2022-11-09 | XR_ITS ---
EXAMINATION: XR foot RT min 3V DATE: 11/09/2022 17:59 INDICATION: Right foot injury. TECHNIQUE: 4 views of right foot were obtained. COMPARISON: None. FINDINGS: Bone alignment is normal. No fracture. There is mild osteoarthritis of first metatarsophala ngeal joint. IMPRESSION: 1. Mild osteoarthritis of first metatarsophalangeal joint. Reviewed, dictated and finalized at location A. [employer]
[2022-11-09 17:42] VITALS: BP 149/88; PULSE 62; RESP 20; TEMP 36.6; O2SAT 98
--- NOTE | 2022-11-09 18:13 | ED.GENADULT ---
HPI - General Adult General Chief complaint: Extremity Injury, Lower Stated complaint: FOOT INJURY Time Seen by Provider: 11/09/22 17:51 Source: RN notes reviewed History of Present Illness HPI narrative: Patient presents emergency department from home for right foot pain. Patient states approximately 1 week ago he dropped a wooden picture frame onto his right foot he states he was barefoot at the time the picture frame landed just proximal to the base of his toes states since that time has had some pain over the dorsal aspect of the foot as well as swelling and ecchymosis extending the toes patient states he is on Plavix and aspirin states he has been able to walk on the foot he denies any pain in the ankle he denies any numbness or tingling denies any fevers or chills. Patient was concerned about blood flow to his foot this evening at 1 to come in for further evaluation. States he has been wearing his shoe he states that toes will become more swollen and bruised when he wears his shoes and improved with rest Related Data Home Medications Medication Instructions Recorded Confirmed clopidogrel 75 mg tablet 75 mg PO DAILY 06/05/22 10/25/22 metoprolol succinate 25 mg 50 mg PO DAILY 07/05/22 10/25/22 tablet,extended release 24 hr (Toprol XL) albuterol sulfate 90 mcg/actuation 2 puff inhalation Q4-6H PRN 10/25/22 10/25/22 aerosol inhaler Shortness Of Breath aspirin 81 mg tablet 81 mg PO DAILY 10/25/22 10/25/22 fluticasone 500 mcg-salmeterol 50 1 inh inhalation BID 10/25/22 10/25/22 mcg/dose blistr powdr for inhalation (Advair Diskus) rosuvastatin 10 mg tablet (Crestor) 40 mg PO DAILY 10/25/22 10/25/22 Allergies Allergy/AdvReac Type Severity Reaction Status Date / Time Penicillins Allergy Anaphylaxis Verified 11/09/22 17:45 bee venom protein (honey bee) AdvReac Intermediate Redness of Verified 11/09/22 17:45 Skin Review of Systems Review of Systems: Gen.: Denies fevers or chills Musculoskeletal: See HPI Neuro: Denies numbness, tingling, weakness Skin: Denies rash Endo: Denies DM PMFSH Past Medical History Medical History Coronary artery disease Essential hypertension History of irregular heartbeat Hyperlipidemia Spinal stenosis of lumbar region He reports that he was supposed to have surgery 10 years ago but did not quit smoking have surgery. He still has daily pain but does not take pain medications. Surgical History Surgical History History of appendectomy History of percutaneous coronary intervention (05/06/22) 100% RCA occlusion with revascularization with Orsiro drug-eluting stent History of repair of left rotator cuff History of tonsillectomy Family History Family History (Updated 07/05/22 @ 08:37 by Brittny Ford RN) Father , Age 73 Acute myocardial infarction from [place] age 73 HLD (hyperlipidemia) Hypertension Sibling Healthy female adult Mother Hypertension Other CAD (coronary artery disease) Social History Social History Social History: He lives at home with his of 23 years. They have a 21-year-old daughter who has autism for which she is the primary caregiver and a [id number] dad. They have a 19-year-old daughter as well who is healthy. 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 He smoked up to a pack of cigarettes per day since he was 8 years old. He quit smoking May 06, 2022 when he had a STEMI. He was an alcoholic until his late 20s at which time he quit drinking alcohol. Code status: Full code Surrogate decision maker: Smoking packs per day: 0.5 Smoking cigarettes per day: 10.0 Years smoked: 34 Smoking pack-years: 17.00 Smoking status: Former smoker Tobacco type: cigarettes Smoking end date:
== END 2022-11-09 18:30 | disposition home or self-care (01) ==
PROVIDERS: Emergency Provider Emergency Medicine; PCP Physician Assistant
DX: S90.31XA Contusion of right foot, initial encounter (principal); I25.10 Atherosclerotic heart disease of native coronary artery without angina pectoris; I10 Essential (primary) hypertension; E78.5 Hyperlipidemia, unspecified; I25.2 Old myocardial infarction; Z87.891 Personal history of nicotine dependence; Z79.82 Long term (current) use of aspirin; W20.8XXA Other cause of strike by thrown, projected or falling object, initial encounter
CPT/HCPCS: 73630; 99283

== ENCOUNTER 2022-11-28 13:45 | Outpatient (CLI) | payer OTHER, SELFPAY ==
[2022-11-28 14:37] LABS: Cholesterol 138 mg/dL (0-200); HDL Direct 37 mg/dL; Triglycerides 79 mg/dL (<150)
[2022-11-28 14:47] LABS: LDL Cholesterol Direct 71 mg/dL
[2022-11-28 15:27] LABS: Vitamin D 25 Hydroxy 22.1 ng/mL
== END 2022-11-28 13:46 | disposition home or self-care (01) ==
LOC: ANHLAB 13:48
PROVIDERS: PCP Physician Assistant; Visit Provider Family Medicine
DX: E55.9 Vitamin D deficiency, unspecified (principal); E78.5 Hyperlipidemia, unspecified
CPT/HCPCS: 36415; 80061; 82306

== ENCOUNTER 2024-04-27 13:44 | Emergency (ER) | payer OTHER, SELFPAY ==
--- NOTE | ~2024-04-27 | CT_ITS ---
CTA chest PE protocol Ordering provider: Julieth Ortiz PA-C History: 54 years Male with . CP, elevated dimer . Comparison: None. Technique: CT angiogram chest was performed following timed intravenous injection of contrast. Thin s lice axial images and reformatted coronal images were obtained. Three dimensional reformatted images of the chest were also obtained using a [employer] workstation. . Automated exposure control and iterati ve reconstruction technique were employed. The dose-length product was 510.68 mGy-cm. 100 MLO Omnipaque 350 was given IV. Findings: PULMONARY ARTERIES: No pulmonary embolus. VISUALIZED THORACIC INLET: Normal. MEDIASTINUM: Aorta/coronary arteries: Mild atheromatous disease. Heart/other: The heart is not enlarged. Lymph nodes: No mediastinal or hilar adenopathy. LUNGS: No pulmonary nodules or masses. No infiltrates or effusions. No pneumothorax. Dependent atelectatic c hanges seen bilaterally. VISUALIZED UPPER ABDOMEN: the visualized upper abdomen is normal. MUSCULOSKELETAL: Soft tissues: The superficial soft tissues are normal. Bones: normal spine. IMPRESSION: 1. No pulmonary embolism. 2. No acute cardiopulmonary pathology. Reviewed, dictated and finalized at location A.
--- NOTE | ~2024-04-27 | US_ITS ---
EXAMINATION: US venous doppler [facility] DATE: 04/27/2024 16:39 INDICATION: Lower limb swelling and elevated d-dimer TECHNIQUE: Grayscale ultrasound images without and with compression and Doppler ultrasound images of the bilateral lower extremity veins were obtained. COMPARISON: None. FINDINGS: The visualized portions of right common femoral vein, profunda (deep) femoral vein, femoral vein, pop liteal vein, posterior tibial veins, peroneal veins, gastrocnemius vein and greater saphenous vein ou tflow are patent. The visualized portions of left common femoral vein, profunda femoral vein, femoral vein, popliteal v ein, posterior tibial veins, peroneal veins, gastrocnemius vein and greater saphenous vein outflow ar e patent. IMPRESSION: 1. No deep venous thrombosis in either lower limb. Reviewed, dictated and finalized at location A.
--- NOTE | ~2024-04-27 | XR_ITS ---
EXAMINATION: XR chest 2V DATE: 04/27/2024 14:11 INDICATION: Chest pain and jaw pain. TECHNIQUE: PA and lateral views of the chest were obtained. COMPARISON: Chest radiograph dated 08/21/2022 FINDINGS: The lungs remain clear with no focal airspace opacities, pulmonary edema, pleural effusion or pneumot horax. The cardiomediastinal silhouette is normal. Visualized bones and soft tissues are unremarkable . IMPRESSION: 1. No acute cardiopulmonary disease. Reviewed, dictated and finalized at location A.
--- NOTE | 2024-04-27 13:45 | ECG_ITS ---
Test Date: 2024-04-27 13:48:03 Measurements Intervals [place] Rate: 64 P: 37 IA: 142 QRS: -1 QRSD: 123 T: 4 QT: 383 QTc: 395 Interpretive Statements SINUS RHYTHM RIGHT BUNDLE BRANCH BLOCK CONSIDER INFERIOR INFARCT, AGE INDETERMINATE ABNORMAL ECG No previous ECG available for comparison Electronically Signed On 04-27-2024 13:59:22 CDT by Teto Horne D.O.
[2024-04-27 13:47] VITALS: BP 149/83; PULSE 62; RESP 16; TEMP 36.5; O2SAT 99
[2024-04-27 14:19] VITALS: O2SAT 14
[2024-04-27] MEDS: ASPIRIN 81 MG CHEWABLE TABLET 324 MG PO (14:23)
[2024-04-27 14:33] VITALS: BP 139/87; PULSE 61; RESP 19; O2SAT 98
[2024-04-27 14:41] LABS: Basophils Percent Auto 0.8 % (0.2-1.2); Eosinophils Percent Auto 0.5 % (0-4.4); Hematocrit 42.1 % (42.0-52.0); Hemoglobin 15.1 g/dL (14.0-18.0); Immature Granulocyte Absolute 0.01 K/mm3 (0.00-0.031); Immature Granulocyte Percent A 0.3 % (0-0.5); Lymphocytes Absolute Auto 0.91 K/mm3 (0.9-3.2); Lymphocytes Percent Auto 23.7 % (18.3-44.2); Mean Corpuscular HGB Conc 35.9 g/dl (32-36); Mean Corpuscular Hemoglobin 31.6 pg (26-34); Mean Corpuscular Volume 88.1 fl (80-100); Mean Platelet Volume 9.8 fl (7.4-10.4); Monocytes Absolute Auto 0.5 K/mm3 (0.1-0.6); Neutrophils Absolute Auto 2.4 K/mm3 (1.3-6.7); Neutrophils Percent Auto 62.7 % (45.5-73.1); Platelet Count Result 167 k/mm3 (150-375); Red Blood Count 4.78 M/mm3 (4.6-6.20); Red Cell Distribution Width 12.2 % (11.5-14.5); White Blood Count 3.8 K/mm3 (4.5-10.0)
--- NOTE | 2024-04-27 14:43 | ED.CHESTPAIN ---
HPI - Chest Pain General Chief Complaint: Chest Pain Stated Complaint: CP Time Seen by Provider: 04/27/24 14:26 Source: patient Mode of arrival: ambulatory Limitations: no limitations History of Present Illness HPI narrative: This is a 54 year old male that presents to the ER for an episode of chest pain today. Reports over the last couple of days he has felt generally unwell and had chills. Reports fatigue and lower extremity edema. Reports today he was walking around the house and started to have left sided sharp chest pain. Reports feeling like something was sitting on his chest. Reports the pain radiated into his jaw and left arm. The pain lasted about 5-10 minutes and resolved without intervention. Denies fever, cough, sore throat, shortness of breath, abdominal pain, vomiting or diarrhea. Related Data Home Medications Medication Instructions Recorded Confirmed clopidogrel 75 mg tablet 75 mg PO DAILY 06/05/22 10/25/22 metoprolol succinate 25 mg 50 mg PO DAILY 07/05/22 10/25/22 tablet,extended release 24 hr (Toprol XL) albuterol sulfate 90 mcg/actuation 2 puff inhalation Q4-6H PRN 10/25/22 10/25/22 aerosol inhaler Shortness Of Breath aspirin 81 mg tablet 81 mg PO DAILY 10/25/22 10/25/22 fluticasone 500 mcg-salmeterol 50 1 inh inhalation BID 10/25/22 10/25/22 mcg/dose blistr powdr for inhalation (Advair Diskus) rosuvastatin 10 mg tablet (Crestor) 40 mg PO DAILY 10/25/22 10/25/22 Allergies Allergy/AdvReac Type Severity Reaction Status Date / Time Penicillins Allergy Anaphylaxis Verified 04/27/24 13:51 bee venom protein (honey bee) AdvReac Intermediate Redness of Verified 04/27/24 13:51 Skin Review of Systems Review of Systems: CONSTITUTIONAL: Reports chills. Denies fever ENT: Denies rhinorrhea, congestion, sore throat CARDIOVASCULAR: Reports chest pain, and edema. RESPIRATORY: Denies cough or dyspnea. GASTROINTESTINAL: Denies abdominal pain, nausea, vomitin All systems reviewed & are unremarkable except as noted in HPI and below PMFSH Past Medical History Medical History Coronary artery disease Essential hypertension History of irregular heartbeat Hyperlipidemia Spinal stenosis of lumbar region He reports that he was supposed to have surgery 10 years ago but did not quit smoking have surgery. He still has daily pain but does not take pain medications. Surgical History Surgical History History of appendectomy History of percutaneous coronary intervention (05/06/22) 100% RCA occlusion with revascularization with Orsiro drug-eluting stent History of repair of left rotator cuff History of tonsillectomy Family History Family History (Updated 07/05/22 @ 08:37 by Brittny Ford RN) Father , Age 73 Acute myocardial infarction from [place] age 73 HLD (hyperlipidemia) Hypertension Sibling Healthy female adult Mother Hypertension Other CAD (coronary artery disease) Social History Social History Social History: He lives at home with his of 23 years. They have a 21-year-old daughter who has autism for which she is the primary caregiver and a nucr-lk-xbmr dad. They have a 19-year-old daughter as well who is healthy. 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 He smoked up to a pack of cigarettes per day since he was 8 years old. He quit smoking May 06, 2022 when he had a STEMI. He was an alcoholic until his late 20s at which time he quit drinking alcohol. Code status: Full code Surrogate decision maker: Smoking packs per day: 0.5 Smoking cigarettes per day: 10.0 Years smoked: 34 Smoking pack-years: 17.00 Smoking status: Former smoker Tobacco type: cigarettes Smoking end date: 05/06/22 Additional smoking assessmen
[2024-04-27 14:51] LABS: Alanine Aminotransferase 37 U/L (6-50); Albumin Level 4.2 g/dL (3.5-5.1); Alkaline Phosphatase 74 U/L (38-126); Anion Gap 9 mmol/L (4-12); Aspartate Amino Transferase 43 U/L (17-59); Bilirubin,Total 0.6 mg/dL (0.2-1.3); Blood Urea Nitrogen 7 mg/dL (9-20); Calcium 8.8 mg/dL (8.4-10.2); Carbon Dioxide 26 mmol/L (22-30); Chloride 104 mmol/L (98-107); Estimated CRCL calculation 88 ml/min; Estimated Glomerular Filt Rate > 60; Glucose 91 mg/dL (65-110); Lipase 45 U/L (23-300); Potassium 3.9 mmol/L (3.4-5.0); Sodium 139 mmol/L (137-145)
[2024-04-27 14:54] LABS: INR 1.1; Prothrombin Time 14.5 Seconds (11.1-14.7)
[2024-04-27 14:55] LABS: Partial Thromboplastin Time 28.4 Seconds (22.3-36.8)
[2024-04-27 15:03] LABS: Troponin I < 0.012 ng/mL (0.000-0.034)
[2024-04-27 15:51] LABS: D Dimer 1.24 ug/mL (<0.48)
[2024-04-27 15:59] LABS: NT Pro B Type Natriuretic Pept 624 pg/mL (19.9-100)
[2024-04-27 16:06] LABS: Monoscreen Negative (Negative); Negative Monotest Control Negative (Negative); Positive Monotest Control Positive (Positive)
[2024-04-27 16:11] LABS: Influenza A QL RT-PCR Negative (Negative); Influenza B QL RT-PCR Negative (Negative); RSV RNA, RT-PCR Negative (Negative); SARS-CoV-2 RNA PCR Negative (Negative)
[2024-04-27 17:12] VITALS: BP 136/84; PULSE 55; RESP 18; O2SAT 97
--- NOTE | 2024-04-27 17:33 | ECG_ITS ---
Test Date: 2024-04-27 18:46:30 Measurements Intervals [place] Rate: 52 P: 25 CA: 143 QRS: -4 QRSD: 116 T: 2 QT: 415 QTc: 386 Interpretive Statements SINUS BRADYCARDIA INCOMPLETE RIGHT BUNDLE BRANCH BLOCK CONSIDER INFERIOR INFARCT, AGE INDETERMINATE BASELINE ARTIFACT- I, II, AVR ABNORMAL ECG Compared to ECG 04/27/2024 13:48:03 HEART RATE HAS DECREASED Electronically Signed On 04-28-2024 07:20:17 CDT by Teto Horne D.O.
[2024-04-27 18:29] VITALS: BP 135/81; PULSE 54; RESP 20; O2SAT 96
[2024-04-27 18:55] LABS: Troponin I < 0.012 ng/mL (0.000-0.034)
[2024-04-27 19:18] VITALS: BP 149/90; PULSE 64; RESP 24; O2SAT 97
== END 2024-04-27 19:20 | disposition home or self-care (01) ==
PROVIDERS: Emergency Medicine; Emergency Provider Physician Assistant; PCP Physician Assistant
DX: R07.9 Chest pain, unspecified (principal); I25.10 Atherosclerotic heart disease of native coronary artery without angina pectoris; I10 Essential (primary) hypertension; E78.5 Hyperlipidemia, unspecified
CPT/HCPCS: 36415; 71046; 71275; 80053; 83690; 83880; 84484; 85025; 85380; 85610; 85730; 86308; 87637; 93005; 93970; 99284; A9270; Q9967